=== PATIENT | female | born 1940 | race Caucasian/White ===

== ENCOUNTER → 2016-06-24 | Outpatient (CLI) | payer OTHER ==
[~2016-06-24] MED LIST: ANAS1TAB19 PO; ASPI81CH2 PO; CALC600T9 PO; GLUCTAB7 PO; LEVO75TA PO
--- NOTE | 2016-06-24 17:07 | MAMMOGRAPHY REPORT ---
BILATERAL DIGITAL DIAGNOSTIC MAMMOGRAM TOMOSYNTHESIS WITH CAD: 06/24/2016 CLINICAL HISTORY: History of right breast cancer status post lumpectomy April 2015 as well as rad iation therapy which finished July 2015. TECHNIQUE: Breast tomosynthesis in addition to standard 2D mammography was performed. Current study was also evaluated with a Computer Aided Detection (CAD) system. Bilateral CC and MLO 2-D and tsering synthesis images and spot magnification right cc and ML views were obtained. COMPARISON: Comparison is made to exams dated: 02/26/2016 mammogram, 06/09/2012 mammogram, 04/18/2015 breast MRI, 03/18/2015 mammogram, 03/18/2015 ultrasound, and 06/09/2012 ultrasound. BREAST COMPOSITION: The tissue of both breasts is heterogeneously dense, which may obscure small ma sses. FINDINGS: There are stable expected postsurgical changes in the right central breast from prior lum pectomy, including architectural distortion and surgical clips at the lumpectomy bed. A linear scar marker denotes a scar in the right breast. Spot magnification views of the lumpectomy bed demonstr ate a few scattered calcifications in the anterior breast, without suspicious cluster of calcificati ons or suspicious mass seen. The remainder of both breasts are stable compared to prior exams, with out suspicious masses, calcifications, or areas of architectural distortion noted. IMPRESSION: ACR-BI-RADS CATEGORY 3: PROBABLY BENIGN Expected post surgical changes in the right breast from prior lumpectomy, with no mammographic evide nce of malignancy in either breast. Recommend follow-up diagnostic mammograms of the right breast i n 6 months to reevaluate the right breast postsurgical changes. The patient has been verbally notified of the results. Approximately 10% of breast cancers are not detected with mammography. A negative mammographic repor t should not delay biopsy if a clinically suggestive mass is present. Emily Joshi M.D. /:06/24/2016 15:15:55 Bottle Packer: April Paz, [facility] letter sent: Personal History 3 BI-RADS Code: ACR-BI-RADS Category 3: Probably Benign
== END | disposition home or self-care (01) ==
LOC: C.MAMM 12:40
PROVIDERS: ATTEND Nurse Practitioner Family
DX: C50.911 Malignant neoplasm of unspecified site of right female breast (principal); Z17.0 Estrogen receptor positive status [ER+]; Z98.890 Other specified postprocedural states; Z92.3 Personal history of irradiation

== ENCOUNTER → 2016-06-24 | Outpatient (CLI) | payer OTHER ==
[2016-06-24 15:13] LABS: BASO % 0.2 %; BASO ABS # 0.02 K/uL (0-0.2); COMPLETE YES; EOS % 0.6 %; HEMATOCRIT 39.8 % (37-47); IG% 0.3 %; LYMPH % 17.1 %; LYMPH ABS # 1.62 K/uL (1.2-3.4); MEAN CELL VOLUME 91.5 fL (80-100); MEAN CORPUSCULAR HEMOGLOBIN 31.5 pg (25-34); MEAN CORPUSCULAR HGB CONC 34.4 g/dl (32-36); MEAN PLATELET VOLUME 9.3 fL (7.4-10.4); MONO % 6.3 %; NEUT % 75.5 %; PLATELET COUNT 305 K/uL (130-400); RED BLOOD COUNT 4.35 M/uL (4.2-5.4); WHITE BLOOD COUNT 9.47 K/uL (4.8-10.8)
[2016-06-24 15:25] LABS: ALT/SGPT 26 U/L (12-78); AST/SGOT 13 U/L (15-37); BLOOD UREA NITROGEN 27 mg/dl (7-18); BUN/CREATININE RATIO 28.2 (10-20); CALCIUM 9.1 mg/dl (8.5-10.1); CARBON DIOXIDE 29 mmol/L (21-32); CHLORIDE 107 mmol/L (98-107); CREATININE 0.94 mg/dl (0.60-1.20); GLUCOSE 93 mg/dl (70-99); POTASSIUM 3.8 mmol/L (3.5-5.1); SODIUM 144 mmol/L (136-145)
[2016-06-24 15:28] LABS: ALB/GLOB RATIO 1.2 (0.9-2); ALKALINE PHOSPHATASE 71 U/L (45-117)
== END | disposition home or self-care (01) ==
LOC: C.LAB1850 13:38
PROVIDERS: ATTEND Nurse Practitioner Family
DX: C50.911 Malignant neoplasm of unspecified site of right female breast (principal)

== ENCOUNTER → 2016-10-15 | Outpatient (CLI) | payer OTHER ==
[2016-10-15 14:19] LABS: BASO % 0.2 %; BASO ABS # 0.02 K/uL (0-0.2); COMPLETE YES; EOS % 0.6 %; HEMATOCRIT 39.8 % (37-47); IG% 0.3 %; LYMPH % 17.5 %; LYMPH ABS # 1.56 K/uL (1.2-3.4); MEAN CORPUSCULAR HEMOGLOBIN 31.1 pg (25-34); MEAN CORPUSCULAR HGB CONC 33.4 g/dl (32-36); MEAN PLATELET VOLUME 9.1 fL (7.4-10.4); NEUT % 74.4 %; PLATELET COUNT 307 K/uL (130-400); RED BLOOD COUNT 4.28 M/uL (4.2-5.4); WHITE BLOOD COUNT 8.89 K/uL (4.8-10.8)
[2016-10-15 14:47] LABS: ALT/SGPT 22 U/L (12-78); AST/SGOT 14 U/L (15-37); BLOOD UREA NITROGEN 31 mg/dl (7-18); BUN/CREATININE RATIO 27.9 (10-20); CALCIUM 8.8 mg/dl (8.5-10.1); CARBON DIOXIDE 28 mmol/L (21-32); CHLORIDE 109 mmol/L (98-107); GLUCOSE 121 mg/dl (70-99); POTASSIUM 3.8 mmol/L (3.5-5.1); SODIUM 142 mmol/L (136-145)
[2016-10-15 14:50] LABS: ALB/GLOB RATIO 1.2 (0.9-2); ALKALINE PHOSPHATASE 76 U/L (45-117)
== END | disposition home or self-care (01) ==
LOC: C.LAB1850 13:45
PROVIDERS: ATTEND Nurse Practitioner Family
DX: C50.911 Malignant neoplasm of unspecified site of right female breast (principal)

== ENCOUNTER → 2017-02-17 | Outpatient (CLI) | payer OTHER ==
--- NOTE | 2017-02-17 15:16 | MAMMOGRAPHY REPORT ---
UNILATERAL RIGHT DIGITAL DIAGNOSTIC MAMMOGRAM TOMOSYNTHESIS WITH CAD AND TARGETED RIGHT ULTRASOUND: CLINICAL HISTORY: 76-year-old woman with a personal history of right breast cancer diagnosed in 2014, presents for a close follow-up in the right breast after treatment. TECHNIQUE: Right breast tomosynthesis in addition to standard 2D mammography was performed. Spot mag nification right CC and ML views were also obtained. Current study was also evaluated with a Compute r Aided Detection (CAD) system. COMPARISON: Comparison is made to exams dated: 06/24/2016 mammogram - [facility], mammogram, 03/28/2015 ultrasound, 03/18/2015 mammogram, 03/18/2015 ultrasound, and 06/09/2012 mammogram. BREAST COMPOSITION: The tissue of the right breast is heterogeneously dense, which may obscure small masses. FINDINGS: There is expected architectural distortion and surgical clips in the 6:00 anterior right b reast, at the site of prior lumpectomy. Best seen on the spot magnification ML view is a 6 mm cluste r of punctate and amorphous microcalcifications in the superior middle one third of the breast, thoug ht to project laterally based on the CC views. When comparing back to prior available mammograms the se microcalcifications were not definitely seen in the past and are indeterminate. Definitive charac terization with a stereotactic guided biopsy is recommended. There is minimal nodularity in the late ral right breast seen on the tomosynthesis images. No other obvious new mass, new grouped or cluster ed microcalcifications or unexpected focal area of architectural distortion is identified. Targeted ultrasound was performed in the lateral right breast to assess for the nodularity seen on th e tomosynthesis images. There is a rounded circumscribed hypoechoic cyst versus fat necrosis in the 8:00 right breast, 1 cm from the nipple, measuring 2.5 x 2.6 x 2.8 mm. No other suspicious solid or cystic mass is identified in the lateral right breast on ultrasound. IMPRESSION: ACR BI-RADS CATEGORY 4: SUSPICIOUS, TARGETED ULTRASOUND ACR BI-RADS CATEGORY 4: SUSPICIO US 1. Right breast stereotactic guided biopsy is recommended for a 6 mm cluster of faint punctate and a morphous microcalcifications in the upper outer quadrant of the right breast. 2. There is slight nodularity on the tomosynthesis images in the right lateral breast on the CC proj ection, but no suspicious sonographic correlate was seen throughout the lateral breast on ultrasound. This most likely represented normal overlapping fibroglandular tissue. 3. Given the personal history of right breast cancer and dense breasts, would also recommend continu ed surveillance with breast MRI. These results and recommendations were discussed with the patient at the time of the exam. The patie nt could not tolerate a stereotactic guided biopsy at this time due to breast pain after the mammogra m images and we will schedule this at a later date. She also tentatively scheduled her breast MRI pr ior to leaving our department. Approximately 10% of breast cancers are not detected with mammography. A negative mammographic report should not delay biopsy if a clinically suggestive mass is present. Rianna Hammonds M.D. ay/:02/17/2017 11:51:37 Electrician: Carmel VARGAS)(Sean), [facility] letter sent: Abnormal 4/5 BI-RADS Code: ACR BI-RADS Category 4: Suspicious Ultrasound BI-RADS: ACR BI-RADS Category 4: Suspici ous
== END | disposition home or self-care (01) ==
LOC: C.MAMM 09:01
PROVIDERS: ATTEND Nurse Practitioner Family
DX: R92.0 Mammographic microcalcification found on diagnostic imaging of breast (principal); Z85.3 Personal history of malignant neoplasm of breast

== ENCOUNTER → 2017-02-17 | Outpatient (CLI) | payer OTHER ==
[2017-02-17 12:18] LABS: BASO % 0.6 %; BASO ABS # 0.04 K/uL (0-0.2); COMPLETE YES; EOS % 2.9 %; HEMATOCRIT 38.9 % (37-47); IG% 0.3 %; LYMPH % 25.2 %; LYMPH ABS # 1.64 K/uL (1.2-3.4); MEAN CELL VOLUME 94.6 fL (80-100); MEAN CORPUSCULAR HEMOGLOBIN 30.4 pg (25-34); MEAN CORPUSCULAR HGB CONC 32.1 g/dl (32-36); MEAN PLATELET VOLUME 9.2 fL (7.4-10.4); MONO % 8.5 %; NEUT % 62.5 %; PLATELET COUNT 304 K/uL (130-400); RED BLOOD COUNT 4.11 M/uL (4.2-5.4)
[2017-02-17 12:39] LABS: ALT/SGPT 21 U/L (12-78); AST/SGOT 18 U/L (15-37); BLOOD UREA NITROGEN 21 mg/dl (7-18); BUN/CREATININE RATIO 28.3 (10-20); CALCIUM 8.8 mg/dl (8.5-10.1); CARBON DIOXIDE 27 mmol/L (21-32); CHLORIDE 109 mmol/L (98-107); CREATININE 0.75 mg/dl (0.60-1.20); GLUCOSE 71 mg/dl (70-99); POTASSIUM 3.8 mmol/L (3.5-5.1); SODIUM 141 mmol/L (136-145)
[2017-02-17 12:41] LABS: ALB/GLOB RATIO 1.2 (0.9-2); ALKALINE PHOSPHATASE 82 U/L (45-117)
== END | disposition home or self-care (01) ==
LOC: C.LAB1850 10:45
PROVIDERS: ATTEND Nurse Practitioner Family
DX: C50.911 Malignant neoplasm of unspecified site of right female breast (principal)

== ENCOUNTER → 2017-03-09 | Outpatient (CLI) | payer OTHER ==
--- NOTE | 2017-03-09 13:43 | Discharge Instructions ---
Discharge Instructions Procedure Procedure Date: Mar 09, 2017. Reason for visit: Right Calcifications. Discharge Discharge Date: Mar 09, 2017. Discharge Diagnosis: post right breast stereotactic guided biopsy Instructions Activity Recommendations: Additional Limitations (see below) Return to School/Work: no limitations Recommended Home Diet: No Limitations Provider Instructions: ACTIVITY RECOMMENDATIONS: * No lifting, pushing, pulling or exercising the affected side for three days. RETURN TO SCHOOL/WORK: * You may return to work/school after the procedure, but do not perform any strenuous activities for 24 to 48 hours. MEDICATIONS: * May take Advil or Aleve for pain. DIET: * Resume previous diet. SPECIAL CARE INSTRUCTIONS: * Keep biopsy site dry for 24 hours. May shower after 24 hours, but do not soak (bathe) incision. * May remove Tegaderm (plastic patch) tomorrow AFTER showering. * Leave the steri-strips on for one week. Allow the steri-strips to fall off by themselves. If not off after one week, you may remove them. You may place a Bandaid crosswise over the strips, if desired. * Apply ice 10 minutes on and 10 minutes off as needed. * Wear a bra at bedtime to sleep more comfortably for 2-3 days. * Your referring physician should have the results after approximately 5 to 7 business days. * Call for unusual bleeding, fever, drainage, etc or if you have any questions call [phone] during normal business hours or after hours call Dr Hammonds, . FOLLOW UP VISIT: Follow-up with Referring Physician as scheduled. Allergies Coded Allergies: Acetaminophen (Unverified Allergy, Unknown, SWELLING, 06/14/15) Uncoded Allergies: -CILLIN ABX (Allergy, Unknown, SWELLING/HIVES, 06/14/15) Janet Castellanos Recommendations: Call your doctor if: * Temperature above 101 degrees * Pain not relieved by pain medicine ordered * There is increased drainage or redness from any incision * You have any unanswered questions or concerns. Your Doctors Instructions noted above were prepared by provider Rianna Hammonds. Patient Signature Section: Patient Instructions Signature Page Kasia Beverly Patient (or Guardian) Signature/Date: I have read and understand the instructions given to me by my caregivers. Caregiver/RN/Doctor Signature/Date: The above-named patient and/or guardian has received patient instructions on this date. + Original Patient Signature Page (only) stays with chart. Please make copy for patient.
--- NOTE | 2017-03-09 14:23 | MAMMOGRAPHY REPORT ---
STEREOTACTIC GUIDED BIOPSY RIGHT BREAST: 03/09/2017 CLINICAL HISTORY: Cluster of faint amorphous microcalcifications in the upper outer middle one third of the right breast. Patient presented for stereotactic guided biopsy. She has a history of right b reast cancer diagnosed in 2014, status post breast conservation treatment. COMPARISON: Comparison is made to exams dated: 03/09/2017 mammogram, 02/17/2017 ultrasound, 02/17/2017 mammogram, 06/24/2016 mammogram - [facility], 02/26/2016 mammogram, and 04/18/2015 b reast MRI. PATIENT CONSENT: After explaining the risks, benefits and alternatives of the procedure to the patien t, informed consent was obtained both verbally and in writing. Specific risks include: Bleeding, inf ection, puncture of adjacent structure, pain, nontarget biopsy, sampling error, metal allergy and med ication reaction. PROCEDURE DESCRIPTION: A time-out was performed and the right breast was confirmed as the site of bio psy. The patient was placed prone on the stereotactic biopsy table and the breast was placed in later almedial compression. A doors prefitter image was obtained that demonstrated the clustered microcalcifications in question. They are amenable to sterotactic biopsy. Then +15 and -15 stereo pair images were ob tained. The calcifications were targeted utilizing the coordinates obtained by the computer. The ski n was prepped with Betadine. 1% Lidocaine with and without epinipherine was administered as local ane sthesia. A small skin incision was made. Through the incision, the needle was inserted to the depth determined by the computer. 12 samples were obtained using a [employer] 9-gauge vacuum-assisted biop sy device. The specimen radiograph demonstrated several medical billing representative microcalcifications, therefore , a metallic marker was placed at the biopsy site. There was no immediate complication. Hemostasis wa s achieved after several minutes of manual compression. The samples were sent to pathology in two ap propriately labeled containers, "with calcifications" and "without calcifications". All of the sample s were obtained from the same single biopsy site. Postprocedure CC and ML views of the right breast were obtained. There is a new dumbbell-shaped met allic biopsy marker in the upper outer middle one third of the breast, at the site of the biopsied mi crocalcifications. There is a 9 mm density at the site of the biopsy marker clip on the LM view sugg esting minimal hematoma at the biopsy site cavity. COMPARISON: Comparison is made to exams dated: 03/09/2017 mammogram, 02/17/2017 ultrasound, 02/17/2017 mammogram, 06/24/2016 mammogram - [facility], 02/26/2016 mammogram, and 04/18/2015 b reast MRI. A stereotactic guided biopsy was performed for the abnormality located in the right breast at 10 o'cl ock middle depth. The skin was prepped in the usual manner. A biopsy needle was placed adjacent to the abnormality under computer guidance and confirmatory stereotactic mammography images were obtaine d to document needle placement. Once the needle was documented to be in the correct location, a spec imen was obtained using an automated biopsy gun. The specimen was sent to the laboratory for patholo gical analysis. IMPRESSION: STEREOTACTIC GUIDED BIOPSY 1. Status post stereotactic guided biopsy of a faint cluster of amorphous microcalcifications in the right upper outer quadrant, with biopsy marker placed at the site. 2. Pending benign pathology results, would recommend continued surveillance with breast MRI. The patient will receive notification of the biopsy results from her referring physician. Rianna Hammonds M.D. ay/:03/09/2017 14:14:10 Automotive Exhaust Emissions Technician: April Paz, [facility]
--- NOTE | 2017-03-09 14:23 | MAMMOGRAPHY REPORT ---
UNILATERAL RIGHT DIGITAL DIAGNOSTIC MAMMOGRAM: 03/09/2017 CLINICAL HISTORY: Status post right breast stereotactic guided biopsy of a faint cluster of amorphous microcalcifications in the upper outer quadrant. Patient has a personal history of right breast can cer diagnosed in 2014, status post breast conservation therapy. Please refer to the report from right breast stereotactic guided biopsy performed at the same time fo r full detail. IMPRESSION: POST PROCEDURE IMAGING FOR MARKER PLACEMENT Please refer to the report from right breast stereotactic guided biopsy performed at the same time fo r full detail. Approximately 10% of breast cancers are not detected with mammography. A negative mammographic report should not delay biopsy if a clinically suggestive mass is present. Rianna Hammonds M.D. ay/:03/09/2017 14:02:20 Lithopress Operator: April Paz, [facility] BI-RADS Code: Post Procedure Imaging For Marker Placement
== END | disposition home or self-care (01) ==
LOC: C.MAMM 12:39
PROVIDERS: ATTEND Nurse Practitioner Family
DX: R92.0 Mammographic microcalcification found on diagnostic imaging of breast (principal); N60.21 Fibroadenosis of right breast

== ENCOUNTER → 2017-07-01 | Outpatient (CLI) | payer OTHER ==
[2017-07-01 12:14] LABS: BASO % 0.6 %; BASO ABS # 0.04 K/uL (0-0.2); EOS % 1.8 %; EOS ABS # 0.12 K/uL (0-0.5); HEMATOCRIT 40.5 % (37-47); HEMOGLOBIN 13.3 g/dL (12.0-16.0); IG# 0.02 K/uL (0.00-0.02); LYMPH % 22.3 %; MEAN CELL VOLUME 93.3 fL (80-100); MEAN CORPUSCULAR HEMOGLOBIN 30.6 pg (25-34); MEAN CORPUSCULAR HGB CONC 32.8 g/dl (32-36); MEAN PLATELET VOLUME 9.4 fL (7.4-10.4); MONO % 7.1 %; MONO ABS # 0.48 K/uL (0.11-0.59); NEUT % 67.9 %; NEUT ABS # 4.58 K/uL (1.4-6.5); PLATELET COUNT 276 K/uL (130-400); RED CELL DISTRIBUTION WIDTH CV 13.4 % (11.5-14.5); RED CELL DISTRIBUTION WIDTH SD 46.1 fL (36.4-46.3); WHITE BLOOD COUNT 6.74 K/uL (4.8-10.8)
[2017-07-01 12:37] LABS: ALBUMIN 3.7 gm/dl (3.4-5.0); ALT/SGPT 20 U/L (12-78); BLOOD UREA NITROGEN 16 mg/dl (7-18); CALCIUM 8.7 mg/dl (8.5-10.1); CARBON DIOXIDE 27 mmol/L (21-32); CREATININE 1.04 mg/dl (0.60-1.20); GLUCOSE 106 mg/dl (70-99); SODIUM 140 mmol/L (136-145)
[2017-07-01 12:40] LABS: ALKALINE PHOSPHATASE 69 U/L (45-117); AST/SGOT 13 U/L (15-37); TOTAL PROTEIN 6.8 gm/dl (6.4-8.2)
== END | disposition home or self-care (01) ==
LOC: C.LAB1850 10:37
PROVIDERS: ATTEND Nurse Practitioner Family
DX: C50.911 Malignant neoplasm of unspecified site of right female breast (principal)

== ENCOUNTER → 2017-08-17 | Outpatient (CLI) | payer OTHER ==
[2017-08-17 09:32] LABS: BASO % 0.3 %; BASO ABS # 0.03 K/uL (0-0.2); EOS % 1.6 %; EOS ABS # 0.15 K/uL (0-0.5); HEMATOCRIT 39.1 % (37-47); HEMOGLOBIN 13.3 g/dL (12.0-16.0); IG# 0.03 K/uL (0.00-0.02); LYMPH % 16.9 %; LYMPH ABS # 1.61 K/uL (1.2-3.4); MEAN CELL VOLUME 93.5 fL (80-100); MEAN CORPUSCULAR HEMOGLOBIN 31.8 pg (25-34); MEAN PLATELET VOLUME 8.9 fL (7.4-10.4); MONO % 7.7 %; MONO ABS # 0.73 K/uL (0.11-0.59); NEUT % 73.2 %; NEUT ABS # 6.97 K/uL (1.4-6.5); PLATELET COUNT 315 K/uL (130-400); RED CELL DISTRIBUTION WIDTH CV 13.6 % (11.5-14.5); RED CELL DISTRIBUTION WIDTH SD 46.3 fL (36.4-46.3); WHITE BLOOD COUNT 9.52 K/uL (4.8-10.8)
[2017-08-17 09:53] LABS: HEMOGLOBIN A1C 5.7 % (4.5-5.6)
[2017-08-17 10:10] LABS: ALBUMIN 3.6 gm/dl (3.4-5.0); ALT/SGPT 25 U/L (12-78); AST/SGOT 16 U/L (15-37); BLOOD UREA NITROGEN 16 mg/dl (7-18); CALCIUM 8.7 mg/dl (8.5-10.1); CARBON DIOXIDE 26 mmol/L (21-32); CREATININE 0.84 mg/dl (0.60-1.20); GLUCOSE 86 mg/dl (70-99); POTASSIUM 4.1 mmol/L (3.5-5.1); SODIUM 140 mmol/L (136-145)
[2017-08-17 10:20] LABS: ALKALINE PHOSPHATASE 67 U/L (45-117); TOTAL PROTEIN 6.8 gm/dl (6.4-8.2)
== END | disposition home or self-care (01) ==
LOC: C.LAB1850 08:46
PROVIDERS: ATTEND Nurse Practitioner Primary Care
DX: E03.9 Hypothyroidism, unspecified (principal); R53.83 Other fatigue; R73.01 Impaired fasting glucose

== ENCOUNTER → 2017-12-20 | Outpatient (CLI) | payer OTHER ==
[~2017-12-20] MED LIST changes: -ANAS1TAB19 PO; +ANAS1TAB59 PO
[2017-12-20 13:18] LABS: BASO % 0.3 %; BASO ABS # 0.02 K/uL (0-0.2); EOS % 1.4 %; HEMATOCRIT 40.6 % (37-47); HEMOGLOBIN 13.5 g/dL (12.0-16.0); IG# 0.03 K/uL (0.00-0.02); LYMPH % 24.6 %; LYMPH ABS # 1.71 K/uL (1.2-3.4); MEAN CELL VOLUME 92.5 fL (80-100); MEAN CORPUSCULAR HEMOGLOBIN 30.8 pg (25-34); MEAN CORPUSCULAR HGB CONC 33.3 g/dl (32-36); MEAN PLATELET VOLUME 9.7 fL (7.4-10.4); MONO % 7.2 %; NEUT % 66.1 %; PLATELET COUNT 292 K/uL (130-400); RED CELL DISTRIBUTION WIDTH CV 13.2 % (11.5-14.5); RED CELL DISTRIBUTION WIDTH SD 44.2 fL (36.4-46.3); WHITE BLOOD COUNT 6.96 K/uL (4.8-10.8)
[2017-12-20 13:45] LABS: ALBUMIN 3.7 gm/dl (3.4-5.0); ALKALINE PHOSPHATASE 77 U/L (45-117); ALT/SGPT 23 U/L (12-78); AST/SGOT 13 U/L (15-37); BLOOD UREA NITROGEN 21 mg/dl (7-18); CALCIUM 8.4 mg/dl (8.5-10.1); CARBON DIOXIDE 25 mmol/L (21-32); CREATININE 0.92 mg/dl (0.60-1.20); GLUCOSE 95 mg/dl (70-99); SODIUM 139 mmol/L (136-145); TOTAL PROTEIN 6.8 gm/dl (6.4-8.2)
== END | disposition home or self-care (01) ==
LOC: C.LAB1850 11:45
PROVIDERS: ATTEND Nurse Practitioner Family
DX: C50.911 Malignant neoplasm of unspecified site of right female breast (principal)

== ENCOUNTER 2022-10-25 18:11 | Inpatient (IN) ==
[2022-10-25] MEDS ORDERED: ONDANSETRON INJ 2 MG/ML 2 ML VIAL IV STA (18:19)
[2022-10-25] MEDS ORDERED: SODIUM CHLORIDE 0.9% 1000ML 1,000 ML IV SCH (18:30)
--- NOTE | 2022-10-25 18:30 | Emergency Department Note ---
History of Present Illness General Chief complaint: Vomiting Stated complaint: CHILLS, VOMITING Time Seen by Provider: 10/25/22 18:19 History of Present Illness Provider complaint: Nausea and chills Onset (ago): month(s) 2 82-year-old female presents emergency department for nausea and weakness. She reports chills she reports is regular for last 2 months. Patient states she is being treated for gastric cancer at [facility] and is supposed to have a CT scan of her abdomen done on Wednesday. Home Medications Medication Instructions Recorded Confirmed Type glucosamine sulf dipot 1 cap PO DAILY 02/17/20 10/25/22 History chlr,msm,chond 550 mg-C 30 mg-rick 1 mg capsule (Glucosamine Chondroitin) levothyroxine 75 mcg tablet 75 mcg PO QAM 02/17/20 10/25/22 History (Synthroid) cholecalciferol (vitamin D3) 25 0 mcg PO DAILY 10/25/22 10/25/22 History mcg (1,000 unit) tablet (Vitamin D3) coffee extract 100 mg-phosphatidyl 0 cap PO DAILY 10/25/22 10/25/22 History serine 100 mg capsule (Neuriva Original) Allergies Allergy/AdvReac Type Severity Reaction Status Date / Time -CILLIN ABX Allergy Unknown SWELLING/HI Uncoded 02/17/20 14:27 VES Past Med/Surg History Medical History Basal cell carcinoma Breast cancer (03/28/15) "DIAGNOSIS: Right breast, invasive ductal carcinoma, grade 2, ER/NM positive, Her2 negative, [id number], stage IA 1. Lumpectomy/SLN - 05/09/15 (Dr. Markham) 2. Status post completion of radiation therapy 08/07/2015 received 5130 cGy utilizing hypo-fractionation" On 06/21/15 11:19 Rios Tamayo wrote "DIAGNOSIS: Right breast, invasive ductal carcinoma, grade 2, ER/NM positive, Her2 negative, [id number], stage IA 1. Lumpectomy/SLN - 05/09/15 (Dr. Markham)" Hypothyroidism (acquired) Squamous cell carcinoma Surgical History H/O lumpectomy History of cataract surgery History of hysteroscopy History of thyroid surgery Family History Mother Breast cancer Father Melanoma Denies family history of Ovarian cancer Colorectal cancer Social History Smoking Status: Never smoker Tobacco Type: Cigarettes Do You Dip or Chew Tobacco: No; Preferred Language: Burmese Feels Safe at Home: Yes Physical Exam Vital Signs Vital Signs - 24 hr 10/25/22 18:16 10/25/22 18:47 10/25/22 19:12 Temperature 36.5 C Temperature Source Oral Pulse Rate 109 H 100 H Pulse Rate [Finger] Pulse Rhythm [Finger] Respiratory Rate 20 Respiratory Effort / Characteristics Non-Labored Respiratory Depth Normal Blood Pressure 135/62 Blood Pressure [Left Arm] Blood Pressure Mean 86 Blood Pressure Mean [Left Arm] Pulse Oximetry 98 92 Oxygen Delivery Method Room Air Room Air Sepsis Recent Fever Within 48 Hours No Sepsis New/Unexplained Change in Mental Status N/A Sepsis Action Taken by Nursing No Action Required 10/25/22 20:26 10/25/22 20:48 10/25/22 22:00 Temperature 37.6 C Temperature Source Oral Pulse Rate Pulse Rate [Finger] 103 H 85 Pulse Rhythm [Finger] Respiratory Rate 18 18 Respiratory Effort / Characteristics Respiratory Depth Blood Pressure Blood Pressure [Left Arm] 115/65 115/62 Blood Pressure Mean Blood Pressure Mean [Left Arm] 81 79 Pulse Oximetry 95 97 Oxygen Delivery Method Room Air Room Air Sepsis Recent Fever Within 48 Hours Sepsis New/Unexplained Change in Mental Status Sepsis Action Taken by Nursing 10/25/22 23:55 Temperature Temperature Source Pulse Rate Pulse Rate [Finger] 109 H Pulse Rhythm [Finger] Regular Respiratory Rate 18 Respiratory Effort / Characteristics Non-Labored Spontaneous Respiratory Depth Normal Blood Pressure Blood Pressure [Left Arm] 116/64 Blood Pressure Mean Blood Pressure Mean [Left Arm] 81 Pulse Oximetry 98 Oxygen Delivery Method Room Air Sepsis Recent Fever Within 48 Hours Sepsis New/Unexplained Change in Mental Status Sepsis Action Taken by Nursing Physical Exam GENERAL: oriented to person, place, and time. appears well-developed and well-nourished. HENT: Exam performed. - Head: Normocephalic and atraumatic. EYES: Conjunctivae and EOM are normal. Right eye exhibits no discharge. Left eye exhibits no discharge. No scleral icterus. NECK: Normal range of motion. Neck supple. No JVD present. CV: Tachycardic rate, regular rhythm, normal heart sounds and intact distal pulses. There is no peripheral edema. Palpable radial pulses bue. PULM/CHEST: Effort normal and breath sounds normal. No respiratory distress. No stridor. no wheezes. no rales. ABD: The abdomen is soft. There is no tenderness. NEURO: Motor and sensation grossly intact. SKIN: Skin is warm and dry. He is not diaphoretic. PSYCH: normal mood and affect. Behavior is normal. Judgment and thought content normal. Course Course 1818: The patient was evaluated in room B11. A complete history and physical exam was performed Administered Medications Ciprofloxacin (Cipro / D5w) 400 mg in 200 mls @ 100 mls/hr IV NOW STA; Protocol Stop: 10/26/22 00:41 Last Admin: 10/25/22 22:51 Dose: 100 mls/hr Documented By: ANNA Discontinued Medications Sodium Chloride (Nss 1000ml) 1,000 mls @ 999 mls/hr IV .Q1H1M AMPARO Stop: 10/25/22 19:30 Last Infusion: 10/25/22 20:13 Dose: 0 mls/hr Documented By: Admin: 10/25/22 18:52 Dose: 999 mls/hr Documented By: BING Ioversol (Optiray 320 100ml) 88 ml IV ONCE ONE Stop: 10/25/22 19:54 Last Admin: 10/25/22 19:53 Dose: 88 ml Documented By: BELLE Ondansetron HCl (Ondansetron Inj 2 Mg/Ml 2 Ml Vial) 4 mg IV NOW STA Stop: 10/25/22 18:20 Last Admin: 10/25/22 18:52 Dose: 4 mg Documented By: BING Medical Decision Making Laboratory Data Attestation: I reviewed the patient's lab results. 10/25/22 19:10 10/25/22 18:52 Lab Results 10/25/22 10/25/22 10/25/22 Range/Units 18:47 18:52 18:57 WBC (4.8-10.8) K/ul RBC (4.20-5.40) M/uL Hgb (12.0-16.0) g/dl POC Hgb 10.5 L (12.0-16.0) g/dl Hct (37.0-47.0) % POC Hct 31 L (37-47) % MCV (80.0-100.0) fL MCH (25.0-34.0) pg MCHC (32.0-36.0) g/dL RDW Std Deviation (36.4-46.3) fL RDW Coeff of Nat (11.5-14.5) % Plt Count (130-400) K/uL MPV (9.4-12.4) fL Immature Gran % (Auto) % Neut % (Auto) % Lymph % (Auto) % [place] % (Auto) % Eos % (Auto) % Baso % (Auto) % Neut # (Auto) (1.40-6.50) K/uL Lymph # (Auto) (1.2-3.4) K/uL [place] # (Auto) (0.11-0.59) K/uL Eos # (Auto) (0-0.50) K/uL Baso # (Auto) (0-0.2) K/uL Immature Gran # (Auto) (0.01-0.20) K/uL Polychromasia PT (9.0-12.0) Seconds INR (0.9-1.1) APTT (21.0-31.0) Seconds PTT Ratio POC Sodium 133 L (135-144) mmol/L Sodium 132 L (136-145) mmol/L POC Potassium 4.4 (3.3-5.0) mmol/L Potassium 4.4 (3.5-5.1) mmol/L POC Chloride 101 (101-112) mmol/L Chloride 101 (98-107) mmol/L Carbon Dioxide 22 (21-32) mmol/L POC Total CO2 20 L (24-31) mmol/L Anion Gap 9 (3-11) POC Anion Gap 18.0 (16-25) mmol/L POC BUN 23 H (7-18) mg/dl BUN 25 H (6-23) mg/dl Creatinine 1.36 H (0.6-1.2) mg/dl POC Creatinine 1.5 H (0.6-1.3) mg/dl Est Cr Clr Drug Dosing 29.9 ml/min Est GFR ( Amer) 42.5 ml/min Est GFR (Non-Af Amer) 36.7 ml/min BUN/Creatinine Ratio 18.4 (10-20) Glucose 140 H (70-99(Fasting)) mg/dl POC Glucose (other) 140 H (70-99) mg/dl Lactate (0.4-2.0) mmol/L Calcium 8.7 (8.6-10.3) mg/dl POC Ioniz Calcium Marlys 1.11 L (1.12-1.32) mmol/l Magnesium 1.8 (1.7-2.4) mg/dl Total Bilirubin 0.9 (0.2-1.0) mg/dl Direct Bilirubin 0.2 (0-0.2) mg/dl AST 14 (13-39) U/L ALT 8 (7-52) U/L Alkaline Phosphatase 71 (34-104) U/L Troponin I High Sens 15.1 H (0-14) pg/ml Total Protein 6.5 (6.0-8.3) gm/dl Albumin 3.7 (3.4-5.0) gm/dl Lipase 11 (11-82) U/L Procalcitonin (0-0.5) ng/ml Urine Color Urine Appearance (Clear) Urine pH (4.5-7.5) Ur Specific [place] (1.000-1.030) Urine Protein (Negative) Urine Glucose (UA) (Negative) Urine Ketones (Negative) Urine Blood (Negative) Urine Nitrite (Negative) Urine Bilirubin (Negative) Urine Urobilinogen (Negative) Ur Leukocyte Esterase (Negative) Urine WBC (Auto) (0-5) /hpf Urine RBC (Auto) (0-4) /hpf U Hyaline Cast (Auto) (0-5) /lpf U Epithel Cells (Auto) (0-5) /lpf Urine Bacteria (Auto) (Negative) Adenovirus (PCR) Not Detected (NotDetected) B. pertussis DNA (PCR) Not Detected (NotDetected) B.parapertussis DNA PCR Not Detected (NotDetected) C. pneumoniae DNA (PCR) Not Detected (NotDetected) Coronavirus OC43 (PCR) Not Detected (NotDetected) Coronavirus HKU1 (PCR) Not Detected (NotDetected) Coronavirus 229E (PCR) Not Detected (NotDetected) SARS-CoV-2 (PCR) Not Detected (NotDetected) Coronavirus NL63 (PCR) Not Detected (NotDetected) Human Metapneumovir PCR Not Detected (NotDetected) Influenza Type A (PCR) Not Detected (NotDetected) Influenza Type B (PCR) Not Detected (NotDetected) M. pneumoniae (PCR) Not Detected (NotDetected) Parainfluenza 1 (PCR) Not Detected (NotDetected) Parainfluenza 2 (PCR) Not Detected (NotDetected) Parainfluenza 3 (PCR) Not Detected (NotDetected) Parainfluenza 4 (PCR) Not Detected (NotDetected) RSV (PCR) Not Detected (NotDetected) Entero/Rhino (PCR) Not Detected (NotDetected) 10/25/22 10/25/22 10/25/22 Range/Units 19:10 19:10 19:10 WBC 30.52 H* (4.8-10.8) K/ul RBC 3.16 L (4.20-5.40) M/uL Hgb 9.7 L (12.0-16.0) g/dl POC Hgb (12.0-16.0) g/dl Hct 29.4 L (37.0-47.0) % POC Hct (37-47) % MCV 93.0 (80.0-100.0) fL MCH 30.7 (25.0-34.0) pg MCHC 33.0 (32.0-36.0) g/dL RDW Std Deviation 54.3 H (36.4-46.3) fL RDW Coeff of Nat 15.9 H (11.5-14.5) % Plt Count 335 (130-400) K/uL MPV 9.1 L (9.4-12.4) fL Immature Gran % (Auto) 1.0 % Neut % (Auto) 91.9 % Lymph % (Auto) 2.2 % [place] % (Auto) 4.6 % Eos % (Auto) 0.0 % Baso % (Auto) 0.3 % Neut # (Auto) 28.06 H (1.40-6.50) K/uL Lymph # (Auto) 0.66 L (1.2-3.4) K/uL [place] # (Auto) 1.41 H (0.11-0.59) K/uL Eos # (Auto) 0.00 (0-0.50) K/uL Baso # (Auto) 0.09 (0-0.2) K/uL Immature Gran # (Auto) 0.30 H (0.01-0.20) K/uL Polychromasia 1+ PT 11.6 (9.0-12.0) Seconds INR 1.1 (0.9-1.1) APTT 25.6 (21.0-31.0) Seconds PTT Ratio 0.9 POC Sodium (135-144) mmol/L Sodium (136-145) mmol/L POC Potassium (3.3-5.0) mmol/L Potassium (3.5-5.1) mmol/L POC Chloride (101-112) mmol/L Chloride (98-107) mmol/L Carbon Dioxide (21-32) mmol/L POC Total CO2 (24-31) mmol/L Anion Gap (3-11) POC Anion Gap (16-25) mmol/L POC BUN (7-18) mg/dl BUN (6-23) mg/dl Creatinine (0.6-1.2) mg/dl POC Creatinine (0.6-1.3) mg/dl Est Cr Clr Drug Dosing ml/min Est GFR ( Amer) ml/min Est GFR (Non-Af Amer) ml/min BUN/Creatinine Ratio (10-20) Glucose (70-99(Fasting)) mg/dl POC Glucose (other) (70-99) mg/dl Lactate 1.1 (0.4-2.0) mmol/L Calcium (8.6-10.3) mg/dl POC Ioniz Calcium Marlys (1.12-1.32) mmol/l Magnesium (1.7-2.4) mg/dl Total Bilirubin (0.2-1.0) mg/dl Direct Bilirubin (0-0.2) mg/dl AST (13-39) U/L ALT (7-52) U/L Alkaline Phosphatase (34-104) U/L Troponin I High Sens (0-14) pg/ml Total Protein (6.0-8.3) gm/dl Albumin (3.4-5.0) gm/dl Lipase (11-82) U/L Procalcitonin (0-0.5) ng/ml Urine Color Urine Appearance (Clear) Urine pH (4.5-7.5) Ur Specific [place] (1.000-1.030) Urine Protein (Negative) Urine Glucose (UA) (Negative) Urine Ketones (Negative) Urine Blood (Negative) Urine Nitrite (Negative) Urine Bilirubin (Negative) Urine Urobilinogen (Negative) Ur Leukocyte Esterase (Negative) Urine WBC (Auto) (0-5) /hpf Urine RBC (Auto) (0-4) /hpf U Hyaline Cast (Auto) (0-5) /lpf U Epithel Cells (Auto) (0-5) /lpf Urine Bacteria (Auto) (Negative) Adenovirus (PCR) (NotDetected) B. pertussis DNA (PCR) (NotDetected) B.parapertussis DNA PCR (NotDetected) C. pneumoniae DNA (PCR) (NotDetected) Coronavirus OC43 (PCR) (NotDetected) Coronavirus HKU1 (PCR) (NotDetected) Coronavirus 229E (PCR) (NotDetected) SARS-CoV-2 (PCR) (NotDetected) Coronavirus NL63 (PCR) (NotDetected) Human Metapneumovir PCR (NotDetected) Influenza Type A (PCR) (NotDetected) Influenza Type B (PCR) (NotDetected) M. pneumoniae (PCR) (NotDetected) Parainfluenza 1 (PCR) (NotDetected) Parainfluenza 2 (PCR) (NotDetected) Parainfluenza 3 (PCR) (NotDetected) Parainfluenza 4 (PCR) (NotDetected) RSV (PCR) (NotDetected) Entero/Rhino (PCR) (NotDetected) 10/25/22 10/25/22 10/25/22 Range/Units 19:10 21:45 22:32 WBC (4.8-10.8) K/ul RBC (4.20-5.40) M/uL Hgb (12.0-16.0) g/dl POC Hgb (12.0-16.0) g/dl Hct (37.0-47.0) % POC Hct (37-47) % MCV (80.0-100.0) fL MCH (25.0-34.0) pg MCHC (32.0-36.0) g/dL RDW Std Deviation (36.4-46.3) fL RDW Coeff of Nat (11.5-14.5) % Plt Count (130-400) K/uL MPV (9.4-12.4) fL Immature Gran % (Auto) % Neut % (Auto) % Lymph % (Auto) % [place] % (Auto) % Eos % (Auto) % Baso % (Auto) % Neut # (Auto) (1.40-6.50) K/uL Lymph # (Auto) (1.2-3.4) K/uL [place] # (Auto) (0.11-0.59) K/uL Eos # (Auto) (0-0.50) K/uL Baso # (Auto) (0-0.2) K/uL Immature Gran # (Auto) (0.01-0.20) K/uL Polychromasia PT (9.0-12.0) Seconds INR (0.9-1.1) APTT (21.0-31.0) Seconds PTT Ratio POC Sodium (135-144) mmol/L Sodium (136-145) mmol/L POC Potassium (3.3-5.0) mmol/L Potassium (3.5-5.1) mmol/L POC Chloride (101-112) mmol/L Chloride (98-107) mmol/L Carbon Dioxide (21-32) mmol/L POC Total CO2 (24-31) mmol/L Anion Gap (3-11) POC Anion Gap (16-25) mmol/L POC BUN (7-18) mg/dl BUN (6-23) mg/dl Creatinine (0.6-1.2) mg/dl POC Creatinine (0.6-1.3) mg/dl Est Cr Clr Drug Dosing ml/min Est GFR ( Amer) ml/min Est GFR (Non-Af Amer) ml/min BUN/Creatinine Ratio (10-20) Glucose (70-99(Fasting)) mg/dl POC Glucose (other) (70-99) mg/dl Lactate (0.4-2.0) mmol/L Calcium (8.6-10.3) mg/dl POC Ioniz Calcium Marlys (1.12-1.32) mmol/l Magnesium (1.7-2.4) mg/dl Total Bilirubin (0.2-1.0) mg/dl Direct Bilirubin (0-0.2) mg/dl AST (13-39) U/L ALT (7-52) U/L Alkaline Phosphatase (34-104) U/L Troponin I High Sens 19.0 H (0-14) pg/ml Total Protein (6.0-8.3) gm/dl Albumin (3.4-5.0) gm/dl Lipase (11-82) U/L Procalcitonin 2.14 H (0-0.5) ng/ml Urine Color Yellow Urine Appearance Clear (Clear) Urine pH 5.5 (4.5-7.5) Ur Specific [place] > 1.045 H (1.000-1.030) Urine Protein 1+ H (Negative) Urine Glucose (UA) Negative (Negative) Urine Ketones Negative (Negative) Urine Blood 1+ H (Negative) Urine Nitrite Negative (Negative) Urine Bilirubin Negative (Negative) Urine Urobilinogen Negative (Negative) Ur Leukocyte Esterase Negative (Negative) Urine WBC (Auto) >30 H (0-5) /hpf Urine RBC (Auto) 0-4 (0-4) /hpf U Hyaline Cast (Auto) 1-5 (0-5) /lpf U Epithel Cells (Auto) 5-10 H (0-5) /lpf Urine Bacteria (Auto) Negative (Negative) Adenovirus (PCR) (NotDetected) B. pertussis DNA (PCR) (NotDetected) B.parapertussis DNA PCR (NotDetected) C. pneumoniae DNA (PCR) (NotDetected) Coronavirus OC43 (PCR) (NotDetected) Coronavirus HKU1 (PCR) (NotDetected) Coronavirus 229E (PCR) (NotDetected) SARS-CoV-2 (PCR) (NotDetected) Coronavirus NL63 (PCR) (NotDetected) Human Metapneumovir PCR (NotDetected) Influenza Type A (PCR) (NotDetected) Influenza Type B (PCR) (NotDetected) M. pneumoniae (PCR) (NotDetected) Parainfluenza 1 (PCR) (NotDetected) Parainfluenza 2 (PCR) (NotDetected) Parainfluenza 3 (PCR) (NotDetected) Parainfluenza 4 (PCR) (NotDetected) RSV (PCR) (NotDetected) Entero/Rhino (PCR) (NotDetected) Imaging Data Attestation: I personally reviewed and interpreted this imaging study as follows: My Impression: Chest x-ray negative. Airway clear. No pneumothorax. No consolidation. No cardiomegaly or cephalization.. No free air under the diaphragm. No fractures of the skeletal structures. Radiologist's Impression: Abdomen/Pelvis CT 10/25/22 18:19 Exam(s): CT ABDOMEN + PELVIS With Contrast IV Amt: 88ML OPTIRAY 320 EXAM: CT Abdomen and Pelvis With Intravenous Contrast CLINICAL HISTORY: Reason for exam: fever vomitting stomach ca. TECHNIQUE: Axial computed tomography images of the abdomen and pelvis with intravenous contrast. CTDI is is advised 13.11 mGy and DLP is 593.64 mGy- cm. Automated exposure control was utilized for the study. A dose lowering technique was utilized adhering to the principles of ALARA. CONTRAST: Patient received 88ML OPTIRAY 320 of IV contrast COMPARISON: 10/08/22 FINDINGS: Lung bases: Unremarkable. No mass. No consolidation. ABDOMEN: Liver: There is 1.4 cm left hepatic cyst. Gallbladder and bile ducts: Unremarkable. No calcified stones. No ductal dilation. Pancreas: Unremarkable. No mass. No ductal dilation. Spleen: Unremarkable. No splenomegaly. Adrenals: Unremarkable. No mass. Kidneys and ureters: There is mild left-sided hydroureteronephrosis. Left nephrographic density is lower than the right nephrographic density. There is left-sided percutaneous nephrostomy. Stomach and bowel: Sigmoid colonic diverticulosis. No obstruction. No mucosal thickening. PELVIS: Appendix: No findings to suggest acute appendicitis. Bladder: Unremarkable. No mass. Reproductive: Unremarkable as visualized. ABDOMEN and PELVIS: Intraperitoneal space: Unremarkable. No free air. No significant fluid collection. Bones/joints: No acute fracture. No dislocation. Soft tissues: There is 5.8 cm diameter heterogenous density mass lesion seen in the right rectus abdominis muscle. 3.1 cm soft tissue mass seen in the left rectus abdominis muscle. Vasculature: Ascending aorta is ectatic, measuring up to 3.8 cm in diameter. No abdominal aortic aneurysm. Lymph nodes: 5.9 cm short axis diameter right retrocrural lymph node is seen. There is 1.5 x 2.5 cm left obturator lymphadenopathy 1.2 cm short axis diameter right inguinal lymphadenopathy is seen. IMPRESSION: 1. Soft tissue mass lesion in the right and left rectus abdominis muscles, suggestive of metastatic disease, similar to prior study 2. Mild left hydroureteronephrosis, more prominent than prior study 3. Left obturator and right inguinal lymphadenopathy Electronically signed by: Luis F Nguyen MD 10/25/22 22:04 PM Chest X-Ray 10/25/22 18:20 XR chest 1V portable CLINICAL HISTORY: Sepsis TECHNIQUE: Single frontal radiograph of the chest was obtained. Comparison: Comparison is made to chest radiograph 02/17/2020 FINDINGS: No lines and tubes are seen. The cardiomediastinal silhouette is normal. The lungs are clear. No evidence of pleural effusion or pneumothorax. IMPRESSION: No acute abnormalities and in particular no radiographic evidence of pneumonia. ACT 112: Negative or not required by law. Electronically signed by: Asif Lin M.D. 10/25/2022 8:06 PM [facility] Narrative Cardiac monitoring: An order was placed for continuous cardiac monitoring. The monitor shows a rate of 110 with sinus tachycardia rhythm interpreted by md Labs show leukocytosis of 30. Lactic acid within normal limits. Urinalysis does appear possibly infected. Patient be treated with Cipro. CT of the abdomen pelvis shows a soft tissue mass suggestive of metastatic disease which is similar to prior study and some mild left hydroureteronephrosis which is more prominent than the prior study. Patient's initial troponin was 15.1. Delta troponin was 19 greater than 20% increase. Patient denies any chest pain. [facility] notified. Impression & Plan Acute UTI, Elevated troponin, Weakness Discharge Plan Visit Data Chief Complaint: Vomiting Stated Complaint: CHILLS, VOMITING ED Provider: Job Fonseca Discharge Problem: Acute UTI, Elevated troponin, Weakness Patient Disposition: Admitted As Inpatient Forms Stand Alone Forms: [facility], Virtual Emergency Department, [facility] Visit Information Prescriptions Prescriptions: No Action levothyroxine [Synthroid] 75 mcg tablet 75 mcg PO QAM Glucosamine Chondroitin 550-30-1 mg Capsule 1 cap PO DAILY cholecalciferol (vitamin D3) [Vitamin D3] 25 mcg (1,000 unit) Tablet 0 mcg PO DAILY Rx Instructions: per pt she hasn't been using the med because she's been feeling bad. Neuriva Original 100-100 mg Capsule 0 cap PO DAILY Rx Instructions: Pt didn't give dose Referrals Referrals: Kamila Enamorado PA-C [Outside Practitioners] -
[2022-10-25 19:11] LABS: iSTAT Creatinine 1.5 mg/dl (0.6-1.3); iSTAT Hemoglobin 10.5 g/dl (12.0-16.0); iSTAT Ionized Calcium 1.11 mmol/l (1.12-1.32); iSTAT Potassium 4.4 mmol/L (3.3-5.0)
[2022-10-25 19:29] LABS: Albumin Level 3.7 gm/dl (3.4-5.0); BUN Creatinine Ratio 18.4 (10-20); Bilirubin Direct 0.2 mg/dl (0-0.2); Bilirubin,Total 0.9 mg/dl (0.2-1.0); Calcium 8.7 mg/dl (8.6-10.3); Creatinine Clr Calc Pharmacy 29.9 ml/min; Est GFR (African American) 42.5 ml/min; Est GFR (Non-African American) 36.7 ml/min; Magnesium 1.8 mg/dl (1.7-2.4); Potassium 4.4 mmol/L (3.5-5.1); Total Protein 6.5 gm/dl (6.0-8.3)
[2022-10-25 19:35] LABS: Troponin I High Sensitivity 15.1 pg/ml (0-14)
[2022-10-25 19:45] LABS: Adenovirus PCR Not Detected (NotDetected); Bordetella parapertussis PCR Not Detected (NotDetected); Bordetella pertussis PCR Not Detected (NotDetected); Chlamydia pneumoniae PCR Not Detected (NotDetected); Coronavirus 229E PCR Not Detected (NotDetected); Coronavirus CoV-2 (COVID19)PCR Not Detected (NotDetected); Coronavirus HKU1 PCR Not Detected (NotDetected); Coronavirus NL63 PCR Not Detected (NotDetected); Coronavirus OC43PCR Not Detected (NotDetected); Human Metapneumovirus PCR Not Detected (NotDetected); Influenza A PCR Not Detected (NotDetected); Influenza B PCR Not Detected (NotDetected); Mycoplasma pneumoniae PCR Not Detected (NotDetected); Parainfluenza Virus 1 PCR Not Detected (NotDetected); Parainfluenza Virus 2 PCR Not Detected (NotDetected); Parainfluenza Virus 3 PCR Not Detected (NotDetected); Parainfluenza Virus 4 PCR Not Detected (NotDetected); Respiratory Syncytial VirusPCR Not Detected (NotDetected); Rhinovirus/Enterovirus PCR Not Detected (NotDetected)
[2022-10-25 19:48] LABS: Hematocrit (blood only) 29.4 % (37.0-47.0); Hemoglobin 9.7 g/dl (12.0-16.0); Mean Corpuscular Hemoglobin 30.7 pg (25.0-34.0); Mean Platelet Volume 9.1 fL (9.4-12.4); Platelet Count 335 K/uL (130-400); RDW Coefficient of Variation 15.9 % (11.5-14.5); RDW Standard Deviation 54.3 fL (36.4-46.3); Red Blood Count 3.16 M/uL (4.20-5.40); White Blood Count 30.52 K/ul (4.8-10.8)
[2022-10-25 19:50] LABS: Basophils # (auto) 0.09 K/uL (0-0.2); Basophils % (auto) 0.3 %; Lymphocytes # (auto) 0.66 K/uL (1.2-3.4); Lymphocytes % (auto) 2.2 %; Monocytes # (auto) 1.41 K/uL (0.11-0.59); Monocytes % (auto) 4.6 %; Neutrophils # (auto) 28.06 K/uL (1.40-6.50); Neutrophils % (auto) 91.9 %; Polychromasia 1+
[2022-10-25] MEDS ORDERED: OPTIRAY 320 100ml IV ONE (19:53)
[2022-10-25 20:02] LABS: INR 1.1 (0.9-1.1); Partial Thromboplastin Ratio 0.9; Partial Thromboplastin Time 25.6 Seconds (21.0-31.0); Prothrombin Time 11.6 Seconds (9.0-12.0)
--- NOTE | 2022-10-25 20:08 | XRay Report ---
XR chest 1V portable CLINICAL HISTORY: Sepsis TECHNIQUE: Single frontal radiograph of the chest was obtained. Comparison: Comparison is made to chest radiograph 02/17/2020 FINDINGS: No lines and tubes are seen. The cardiomediastinal silhouette is normal. The lungs are clear. No evid ence of pleural effusion or pneumothorax. IMPRESSION: No acute abnormalities and in particular no radiographic evidence of pneumonia. ACT 112: Negative or not required by law. Electronically signed by: Asif Lin M.D. 10/25/2022 8:06 PM
--- NOTE | 2022-10-25 22:05 | CT Scan Report ---
Exam(s): CT ABDOMEN + PELVIS With Contrast IV Amt: 88ML OPTIRAY 320 EXAM: CT Abdomen and Pelvis With Intravenous Contrast CLINICAL HISTORY: Reason for exam: fever vomitting stomach ca. TECHNIQUE: Axial computed tomography images of the abdomen and pelvis with intravenous contrast. CTDI is is advised 13.11 mGy and DLP is 593.64 mGy- cm. Automated exposure control was utilized for the study. A dose lowering technique was utilized adhering to the principles of ALARA. CONTRAST: Patient received 88ML OPTIRAY 320 of IV contrast COMPARISON: 10/08/22 FINDINGS: Lung bases: Unremarkable. No mass. No consolidation. ABDOMEN: Liver: There is 1.4 cm left hepatic cyst. Gallbladder and bile ducts: Unremarkable. No calcified stones. No ductal dilation. Pancreas: Unremarkable. No mass. No ductal dilation. Spleen: Unremarkable. No splenomegaly. Adrenals: Unremarkable. No mass. Kidneys and ureters: There is mild left-sided hydroureteronephrosis. Left nephrographic density is lower than the right nephrographic density. There is left-sided percutaneous nephrostomy. Stomach and bowel: Sigmoid colonic diverticulosis. No obstruction. No mucosal thickening. PELVIS: Appendix: No findings to suggest acute appendicitis. Bladder: Unremarkable. No mass. Reproductive: Unremarkable as visualized. ABDOMEN and PELVIS: Intraperitoneal space: Unremarkable. No free air. No significant fluid collection. Bones/joints: No acute fracture. No dislocation. Soft tissues: There is 5.8 cm diameter heterogenous density mass lesion seen in the right rectus abdominis muscle. 3.1 cm soft tissue mass seen in the left rectus abdominis muscle. Vasculature: Ascending aorta is ectatic, measuring up to 3.8 cm in diameter. No abdominal aortic aneurysm. Lymph nodes: 5.9 cm short axis diameter right retrocrural lymph node is seen. There is 1.5 x 2.5 cm left obturator lymphadenopathy 1.2 cm short axis diameter right inguinal lymphadenopathy is seen. IMPRESSION: 1. Soft tissue mass lesion in the right and left rectus abdominis muscles, suggestive of metastatic disease, similar to prior study 2. Mild left hydroureteronephrosis, more prominent than prior study 3. Left obturator and right inguinal lymphadenopathy Electronically signed by: Luis F Nguyen MD 10/25/22 22:04 PM
[2022-10-25 22:14] LABS: Appearance Urine Clear (Clear); Bacteria Urine Automated Negative (Negative); Bilirubin Urine Negative (Negative); Blood Urine 1+ (Negative); Color Urine Yellow; Glucose Urine UA Negative (Negative); Ketones Urine Negative (Negative); Leukocyte Esterase Urine Negative (Negative); Nitrite Urine Negative (Negative); Protein Urine 1+ (Negative); RBC Urine Automated 0-4 /hpf (0-4); Specific Gravity Urine > 1.045 (1.000-1.030); Urobilinogen Urine Negative (Negative); WBC Urine Automated >30 /hpf (0-5); pH Urine 5.5 (4.5-7.5)
[2022-10-25] MEDS ORDERED: CIPROFLOXACIN / D5W 400 MG/200 ML BAG IV STA (22:42)
--- NOTE | 2022-10-25 23:21 | History & Physical Report ---
Date of Service October 25, 2022 Assessment & Plan (1) Urinary tract infection: Plan: -UA largely clear aside from WBCs + epithelial cells but given clinical history + exam findings + leukocytosis + procalcitonin elevation, concern for UTI -CTAP does not demonstrate acute pyelonephritis or nephro/ureterolithiasis though L hydroureteronephrosis noted -Ciprofloxacin given in ED, will continue for now though low threshold to broaden coverage if clinical decline -BCx, UCx pending -Urology consulted -Trend CBC, will repeat procalcitonin (2) Leukocytosis: Plan: -WBC 30, significantly increased from 14 on 10/08 -Likely indicates acute infection given recent UTIs, presence of nephrostomy tube + procalcitonin elevation -As above, ciprofloxacin continued -Trend CBC (3) Acute kidney injury: Plan: -Cr 1.36 on admission, elevated from baseline of 1.0 -Suspect pre-renal from poor oral intake -IVF repletion ongoing -Trend BMP (4) Elevated troponin: Plan: -Minimally elevated troponin 15 in pt without chest pain or EKG ischemic changes -Will defer TTE or further cardiac workup for now -Trend to peak (5) Clostridium difficile colitis: Plan: -Recently completed treatment Flagyl x7 days for C difficile colitis -Will retest stool PCR if further incidents of diarrhea occur in hospital (6) Hyponatremia: Plan: -Mild hyponatremia to Na 132 on admission -Likely 2/2 poor oral intake, dehydration -IVF repletion ongoing -Trend BMP (7) Anemia: Plan: -Hgb 9.7, stable from 9.6 on 10/08 -Normocytic, likely of chronic disease -Does appear at baseline per [facility] records -No suspected bleeding at present -Trend CBC (8) Metastatic disease: Plan: -Extensive cancer history w/ active gastric cancer being managed at [facility], follows with [facility] oncology -Deferring oncology consult on admission (9) Hypothyroidism: Plan: -Continue levothyroxine Plan FENGI: Regular Code status: Full DVT ppx: Lovenox 40 mg daily Isolation: None Dispo: Medical/surgical with telemetry History of Present Illness Chief Complaint: Malaise Primary Care Provider: Maribell Jacek Pt is 82 yo F with PMH breast cancer s/p lumpectomy + radiation, SCC, BCC, stage III endometrial cancer s/p hysterectomy + b/l salpingo-oophorectomy + pelvic node removal + partial omentectomy, gastric cancer being treated at [facility], metastatic disease, L renal mass w/ nephrostomy tube placed about 5 weeks prior at [facility], hypothyroidism, multiple UTIs presenting with multiple symptoms. Pt reports 10 weeks' worth of symptoms- general malaise, fatigue, subjective fever/chills, nausea, generalized abdominal pain, poor oral intake, night sweats. Pt recently hospitalized at [facility] 09/22 - 09/27 for UTI w/ hydronephrosis + JOCELIN, underwent L percutaneous nephrostomy + treated with cefepime -> Bactrim. She was seen in [facility] ED about 2 weeks prior and diagnosed with colitis per CT, discharged home without intervention- she was completing cefdinir course for UTI at the time. She went to PCP at [facility] on 10/15 due to persistent symptoms along with watery foul-smelling diarrhea. She did begin treatment for C difficile colitis with Flagyl x7 days at that visit and completed on 10/22. She came to ED due to concern by family and also since her usual nephrostomy drainage was not adequate today- very little UOP. Pt arrived to ER hemodynamically stable, mild tachycardia to 100s. Initial evaluation significant for WBC 30.5, Hgb 9.7, Na 132, BUN 25, Cr 1.36, troponin 15, procalcitonin 2.1, UA with 30+ WBCs, 5-10 epithelial cells. CXR clear. EKG unremarkable. CTAP w/ soft tissue mass lesion in R + L rectus abdominis muscles suggesting metastasis, mild L hydroureteronephrosis, L obturator + R inguinal lymphadenopathy. ER interventions include Zofran, NSS bolus 1L, ciprofloxacin IV. At present, pt reports no change in symptoms. Still reporting significant malaise. No active chest pain. Allergies Allergy/AdvReac Type Severity Reaction Status Date / Time Penicillins Allergy Unknown Swelling/Hi Verified 10/26/22 00:39 ves Home Medications Medication Instructions Recorded Confirmed Type glucosamine sulf dipot 1 cap PO DAILY 02/17/20 10/25/22 History chlr,msm,chond 550 mg-C 30 mg-rick 1 mg capsule (Glucosamine Chondroitin) levothyroxine 75 mcg tablet 75 mcg PO QAM 02/17/20 10/25/22 History (Synthroid) cholecalciferol (vitamin D3) 25 0 mcg PO DAILY 10/25/22 10/25/22 History mcg (1,000 unit) tablet (Vitamin D3) coffee extract 100 mg-phosphatidyl 0 cap PO DAILY 10/25/22 10/25/22 History serine 100 mg capsule (Neuriva Original) ciprofloxacin HCl 500 mg tablet 500 mg PO BID #20 tabs 10/29/22 Rx (Cipro) ondansetron HCl 4 mg tablet 4 mg PO TID PRN nausea and 10/29/22 Rx vomiting #20 tabs oxycodone 5 mg tablet 5 - 10 mg PO TID PRN pain #20 tabs 10/29/22 Rx Past Med/Surg History Medical History (Updated 10/28/22 @ 07:08 by Victor Manuel Barriga MD) Basal cell carcinoma Breast cancer (03/28/15) On 06/21/15 11:19 Rios Tamayo wrote "DIAGNOSIS: Right breast, invasive ductal carcinoma, grade 2, ER/VA positive, Her2 negative, [id number], stage IA 1. Lumpectomy/SLN - 05/09/15 (Dr. Markham)" Hypothyroidism (acquired) Squamous cell carcinoma Surgical History H/O lumpectomy History of cataract surgery History of hysteroscopy History of thyroid surgery Family History Mother Breast cancer Father Melanoma Denies family history of Ovarian cancer Colorectal cancer Social History Smoking Status: Never smoker Tobacco Type: Cigarettes Do You Dip or Chew Tobacco: No; Hx Alcohol Use: No Hx Substance Use: No Preferred Language: Guyanese Communication Ability: Effective Social Insurance Specialist Required: No Beliefs That Will Affect Care: None Current Living Situation: Spouse and Family Current Living Situation Comment: lives w/ & 2 stepsons Feels Safe at Home: Yes Assistive Devices: Cane and Walker Review of Systems Review of Systems: Per HPI/Subjective Physical Exam Physical Exam: General: frail-appearing, no acute distress, tired HEENT: PERRL, EOMI, conjunctivae clear without injection, anicteric sclerae, dry mucous membranes, clear oropharynx without exudate or erythema Neck: supple, trachea midline, no thyromegaly, no JVD, no cervical lymphadenopathy CV: RRR, normal S1 and S2, no murmurs Resp: CTAB, no increased work of breathing, no crackles or wheezes Abd: Soft, mildly tender to L flank + CVA, nondistended, no guarding or rebound, no hepatosplenomegaly. L nephrostomy tube in place. MSK: Normal bulk of all four extremities Neuro: AOx3, no focal motor or sensory deficits Skin: no rashes or lesions, warm and dry Ext: no LE peripheral edema or erythema, capillary refill <2s in all four extremities, 2+ LE peripheral pulses b/l Results & Data Results & Data Vital Signs (Past 12 Hours) Vital Signs Temp Pulse Pulse Resp BP BP Pulse Ox 10/25/22 22:00 85 18 115/62 97 10/25/22 20:48 37.6 C 10/25/22 20:26 103 H 18 115/65 95 10/25/22 19:12 92 10/25/22 18:47 100 H 10/25/22 18:16 36.5 C 109 H 20 135/62 98 O2 Del Method 10/25/22 22:00 Room Air 10/25/22 20:48 10/25/22 20:26 Room Air 10/25/22 19:12 Room Air 10/25/22 18:47 10/25/22 18:16 Room Air Code Status & VTE Plan VTE Prophylaxis Plan VTE Prophylaxis will be ordered: Yes Supervising Physician Co-Signing Physician Notes Attending addendum: I have physically seen this patient, have supervised the medical residents activities, and agree with the H&P unless as otherwise noted. Assessment and Plan: Urinary tract infection/left hydroureteronephrosis Follow urine culture sensitivity Follow blood culture and sensitivity Continue Cipro IV begun in the ED Consult urology Acute kidney injury- Creatinine 1.36 on admission with baseline 0.99 IV fluids, and recheck laboratories in a.m. Follow urine culture and sensitivity and continue treat with Cipro Elevated troponin- Troponin 15.1 on admission Follow serially Likely supply demand mismatch issue Remaining orders and notations as noted Resident Activity Tracking Resident Involvement: Resident Care Provided Care Provided: Adult [facility]
[2022-10-26] MEDS ORDERED: HYDROmorphone INJ 0.5 MG/0.5 ML SYR IV PRN (00:29)
[2022-10-26] MEDS: ACETAMINOPHEN 1,000 MG/100 ML VIAL IV PRN ×2 (01:30→19:28)
[2022-10-26] MEDS: LACTATED RINGER'S 1,000 ML IV SCH ×2 (01:30→16:04)
[2022-10-26] MEDS: LEVOTHYROXINE SODIUM 75 MCG TABLET PO SCH (06:50)
[2022-10-26 07:32] LABS: BUN Creatinine Ratio 16.4 (10-20); Calcium 8.7 mg/dl (8.6-10.3); Creatinine Clr Calc Pharmacy 20.7 ml/min; Est GFR (African American) 32.2 ml/min; Est GFR (Non-African American) 27.8 ml/min; Potassium 4.6 mmol/L (3.5-5.1)
[2022-10-26 07:33] LABS: Hematocrit (blood only) 32.2 % (37.0-47.0); Hemoglobin 10.5 g/dl (12.0-16.0); Mean Corpuscular Hemoglobin 30.5 pg (25.0-34.0); Mean Corpuscular Hgb Conc 32.6 g/dL (32.0-36.0); Mean Corpuscular Volume 93.6 fL (80.0-100.0); Platelet Count 307 K/uL (130-400); RDW Coefficient of Variation 16.4 % (11.5-14.5); RDW Standard Deviation 56.5 fL (36.4-46.3); Red Blood Count 3.44 M/uL (4.20-5.40); White Blood Count 33.24 K/ul (4.8-10.8)
--- NOTE | 2022-10-26 08:17 | Hospitalist Progress Note ---
Date of Service October 26, 2022 Assessment & Plan (1) Urinary tract infection: Plan: Percutaneous nephrostomy tube with decreased output increased debris + leukocytosis + procalcitonin elevation, concern for UTI POA -CTAP does not demonstrate acute pyelonephritis or nephro/ureterolithiasis though L hydroureteronephrosis noted to be worsened than previous -Ciprofloxacin given in ED, will continue -BCx, UCx pending -Urology consulted recommend flushing percutaneous nephrostomy tube Marked leukocytosis persists immature granulocytes also noted (2) Metastatic disease: Plan: -Extensive cancer history w/ active gastric cancer being [place] [facility], reportedly was supposed to establish care at [facility] but cannot make appointment on the of patient is open to having her malignancy managed here has previously been treated by Dr. Rios Tamayo for her breast cancer We will of oncology consult and radiation oncology consult on 08/27 other malignancies are breast, basal cell, and recently eval for endometrial mass - (3) Leukocytosis: Plan: -WBC 30, significantly increased from 14 on 10/08 -with recent C Diff infection however patient is very constipated therefore will not retest stool at this time and actually give laxatives (4) Acute kidney injury: Plan: -Cr 1.36 on admission, elevated from baseline of 1.0 -Suspect pre-renal from poor oral intake -IVF repletion ongoing -Trend BMP (5) Elevated troponin: Plan: -Minimally elevated troponin 15 in pt without chest pain or EKG ischemic changes -Will defer TTE or further cardiac workup for now Likely this is demand ischemia there is no persistent trend after serial troponins x3 (6) Clostridium difficile colitis: Plan: -Recently completed treatment Flagyl x7 days for C difficile colitis Leukocytosis is worrisome however patient is noted any bowel movements has been constipated for 4 days or so (7) Hyponatremia: Plan: Acute [id number]-Cepd hyponatremia to Na 132 on admission - (8) Anemia: Plan: Chronic seems stable-Hgb 9.7, stable from 9.6 on 10/08 -Normocytic, likely of chronic disease -Does appear at baseline per [facility] records (9) Hypothyroidism: Plan: -Continue levothyroxine Plan Code status: Full DVT ppx: Lovenox 40 mg daily Admission and Anticipated Discharge Date Admission Date: October 25, 2022 Subjective Patient states she feels better now I did conference in the call with her daughter who is a nurse practitioner Patient was initially involved in care at [facility] where she had a percutaneous nephrostomy tube reportedly there is an intra-abdominal mass that is obstructing her left ureter her nephrostomy tube was not draining appropriately but urology evaluated and found that the stopcock was slightly turned in with this was not preventing appropriate drainage. Patient is currently admitted for weakness and possible UTI on presentation Physical Exam Physical Exam: Patient is pleasant she denies any pain she is a nephrostomy tube exiting her left back for this as a dark and yellow liquid with a lot of debris within it Her abdomen in general is nontender I was trying to palpate abdominal masses that may be able to palpate the one on the right Card exam is regular lungs are clear Results & Data Results & Data Vital Signs (Past 12 Hours) Vital Signs Temp Pulse Pulse Resp BP Pulse Ox O2 Del Method 10/26/22 04:43 97.5 F L 80 20 97/56 L 98 Room Air 10/26/22 00:00 Room Air 10/26/22 00:00 99.3 F 108 H 20 119/67 93 Room Air 10/26/22 00:20 99 H 10/25/22 23:55 109 H 18 116/64 98 Room Air 10/25/22 22:00 85 18 115/62 97 Room Air 10/25/22 20:48 99.6 F 10/25/22 20:26 103 H 18 115/65 95 Room Air Laboratory Results reviewed cbc, chemistry PG Care Time/CCT Total # of Minutes Spent Total Time Spent with Patient: Total time spent is greater than 50% in coordination of care (as documented) at patient's floor/unit and/or counseling patient: Coding Level of Care Code 24071 SUB INP/OBS CARE 2/35MIN Diagnoses Urinary tract infection N39.0 Metastatic disease C79.9 Leukocytosis D72.829 Acute kidney injury N17.9 Elevated troponin R77.8 Clostridium difficile colitis A04.72 Hyponatremia E87.1 Anemia D64.9 Hypothyroidism E03.9
--- NOTE | 2022-10-26 08:57 | Urology Consultation ---
Date of Consultation October 26, 2022 Assessment & Plan (1) Acute UTI: (2) Metastatic disease: Plan Metastatic breast CA with subsequent left ureteral obstruction and nephrostomy tube; urinary tract infection She has had her care delivered through [facility] and I see no reason to change any care Her CT was personally reviewed and discussed as were all of her labs and history Her left nephrostomy tube is appropriately positioned and she has no significant right-sided hydronephrosis She reports that her nephrostomy has not been draining for several days and on evaluation the stopcock was closed. After opening this she had immediate drainage of purulent urine and anticipate this will gradually lead to improvement Nephrostomy can be flushed with 5 cc of normal saline if output slows, however, I hope that with appropriate antibiotics and hydration we should see gradual clearing of her grossly purulent urine Please call if any further issues during this hospitalization History of Present Illness Attending Physician: William Faith MD History of Present Illness Extremely pleasant 82-year-old female who has unfortunately developed metastatic breast cancer She was recently hospitalized in [place] with evidence of left ureteral obstruction and urinary tract infection This necessitated left nephrostomy tube placement She has had a persistent leukocytosis She is still receiving care through the [facility] system She presented to the emergency room here because of failure for her left nephrostomy tube to drain and worsening condition overall Her chronic elevated white count was further elevated to 30,000 Creatinine has a baseline of under 1 but was 1.3 on arrival and 1.7 today She feels poorly overall but has been afebrile and hemodynamically stable Allergies Allergy/AdvReac Type Severity Reaction Status Date / Time Penicillins Allergy Unknown Swelling/Hi Verified 10/26/22 00:39 ves Home Medications Medication Instructions Recorded Confirmed Type glucosamine sulf dipot 1 cap PO DAILY 02/17/20 10/25/22 History chlr,msm,chond 550 mg-C 30 mg-rick 1 mg capsule (Glucosamine Chondroitin) levothyroxine 75 mcg tablet 75 mcg PO QAM 02/17/20 10/25/22 History (Synthroid) cholecalciferol (vitamin D3) 25 0 mcg PO DAILY 10/25/22 10/25/22 History mcg (1,000 unit) tablet (Vitamin D3) coffee extract 100 mg-phosphatidyl 0 cap PO DAILY 10/25/22 10/25/22 History serine 100 mg capsule (Neuriva Original) Patient History Medical History Basal cell carcinoma Breast cancer (03/28/15) "DIAGNOSIS: Right breast, invasive ductal carcinoma, grade 2, ER/SC positive, Her2 negative, [id number], stage IA 1. Lumpectomy/SLN - 05/09/15 (Dr. Markham) 2. Status post completion of radiation therapy 08/07/2015 received 5130 cGy utilizing hypo-fractionation" On 06/21/15 11:19 Rios Tamayo wrote "DIAGNOSIS: Right breast, invasive ductal carcinoma, grade 2, ER/SC positive, Her2 negative, [id number], stage IA 1. Lumpectomy/SLN - 05/09/15 (Dr. Markham)" Hypothyroidism (acquired) Squamous cell carcinoma Surgical History H/O lumpectomy History of cataract surgery History of hysteroscopy History of thyroid surgery Family History Mother Breast cancer Father Melanoma Denies family history of Ovarian cancer Colorectal cancer Social History Smoking Status: Never smoker Tobacco Type: Cigarettes Do You Dip or Chew Tobacco: No; Hx Alcohol Use: No Hx Substance Use: No Preferred Language: Afghan Communication Ability: Effective Construction Carpenter Required: No Beliefs That Will Affect Care: None Current Living Situation: Spouse and Family Current Living Situation Comment: lives w/ & 2 stepsons Other Information That Helps Us Care for You: No Feels Safe at Home: Yes Safety Concerns: Feels Safe At This Time Assistive Devices: Cane and Glasses Review of Systems Constitutional: + fatigue and + malaise; no fever and no chills Eyes: no worsening vision Ear, Nose, Mouth, Throat: no facial pain and no pain with swallowing Respiratory: no cough and no dyspnea Cardiovascular: no chest pain and no palpitations Gastrointestinal: + abdominal pain; no nausea and no vomiting Genitourinary: no dysuria, no difficulty urinating, no urinary frequency and no hematuria UTI Musculoskeletal: no back pain Integumentary: no rash and no urticaria Neurologic: no gait abnormality and no unsteadiness Psychiatric: no behavioral changes and no depression Endocrine: no fatigue Physical Exam Physical Exam: Abdomen soft, no right CVA tenderness, no suprapubic tenderness, left nephrostomy tube site appears appropriate Stopcock on the left nephrostomy tube was closed and there is no drainage into the bag After un locking the stopcock she had an immediate drainage of purulent urine into the nephrostomy bag Constitutional: well developed and well nourished Respiratory: no respiratory distress Cardiovascular: Extremities: no pedal edema Gastrointestinal (Abdomen): Inspection/Auscultation: abdomen normal to inspection Results & Data Vital Signs (Past 12 Hours) Vital Signs Temp Pulse Pulse Resp BP Pulse Ox O2 Del Method 10/26/22 08:14 37.1 C 97 H 16 94/55 L 92 Room Air 10/26/22 04:43 36.4 C L 80 20 97/56 L 98 Room Air 10/26/22 00:00 Room Air 10/26/22 00:00 37.4 C 108 H 20 119/67 93 Room Air 10/26/22 00:20 99 H 10/25/22 23:55 109 H 18 116/64 98 Room Air 10/25/22 22:00 85 18 115/62 97 Room Air PG Care Time/CCT Total # of Minutes Spent Total Time Spent with Patient: Total time spent is greater than 50% in coordination of care (as documented) at patient's floor/unit and/or counseling patient: Coding Level of Care Code 59366 IN/OBS CONSULT LVL 4,60M Diagnoses Acute UTI N39.0 Metastatic disease C79.9
[2022-10-26] MEDS: ENOXAPARIN INJ 30 MG/0.3 ML SYR SQ SCH (09:13)
--- NOTE | 2022-10-26 10:38 | Electrocardiogram Report ---
Test Reason : Blood Pressure : / mmHG Vent. Rate : 100 BPM Atrial Rate : 100 BPM P-R Int : 148 ms QRS Dur : 086 ms QT Int : 374 ms P-R-T Axes : 079 033 160 degrees QTc Int : 482 ms Sinus rhythm with Premature supraventricular complexes Low voltage QRS T wave abnormality, consider anterolateral ischemia Prolonged QT Abnormal ECG When compared with ECG of 22-MAY-2021 14:52, Premature supraventricular complexes are now Present Nonspecific T wave abnormality now evident in Inferior leads T wave inversion now evident in Anterolateral leads Confirmed by Himanshu Gregory ([id number]) on 10/26/2022 10:38:23 AM Referred By: REFERRED SELF Confirmed By:Himanshu Gregory
[2022-10-26] MEDS ORDERED: RASPBERRY SYRUP 5 ML UDP PO SCH (12:00)
[2022-10-26] MEDS ORDERED: VANCOMYCIN HCL 125 MG/2.5ML SOLN PO SCH (12:00)
[2022-10-26] MEDS ORDERED: SENNOSIDES 8.8 MG/5 ML UDC PO ONE (12:25)
[2022-10-26] MEDS: CIPROFLOXACIN / D5W 400 MG/200 ML BAG IV SCH (13:56)
[2022-10-27] MEDS: CIPROFLOXACIN / D5W 400 MG/200 ML BAG IV SCH (00:23)
[2022-10-27] MEDS: LEVOTHYROXINE SODIUM 75 MCG TABLET PO SCH (05:37)
[2022-10-27 08:08] LABS: Hematocrit (blood only) 24.8 % (37.0-47.0); Hemoglobin 8.3 g/dl (12.0-16.0); Mean Corpuscular Hemoglobin 30.5 pg (25.0-34.0); Mean Corpuscular Hgb Conc 33.5 g/dL (32.0-36.0); Mean Corpuscular Volume 91.2 fL (80.0-100.0); Mean Platelet Volume 10.3 fL (9.4-12.4); Platelet Count 231 K/uL (130-400); RDW Coefficient of Variation 16.1 % (11.5-14.5); RDW Standard Deviation 53.9 fL (36.4-46.3); Red Blood Count 2.72 M/uL (4.20-5.40); White Blood Count 17.78 K/ul (4.8-10.8)
[2022-10-27 08:45] LABS: Calcium 8.4 mg/dl (8.6-10.3); Magnesium 1.9 mg/dl (1.7-2.4)
[2022-10-27 08:51] LABS: BUN Creatinine Ratio 21.1 (10-20); Creatinine Clr Calc Pharmacy 24.9 ml/min; Est GFR (African American) 40.3 ml/min; Est GFR (Non-African American) 34.8 ml/min
[2022-10-27] MEDS: ENOXAPARIN INJ 30 MG/0.3 ML SYR SQ SCH (09:05)
--- NOTE | 2022-10-27 09:13 | Radiation OncologyConsultation ---
Date of Consultation October 27, 2022 Assessment & Plan (1) Metastatic disease: 1. She will continue on her current antibiotic therapy. There is been improvement in the leukocytosis as well as creatinine. 2. Medical records from [facility] have been reviewed. Recommendation was for biopsy and then decision on chemotherapy. 3. Recommendation for palliative radiation therapy for the pain management of pelvic/abdominal masses as well as periureteral mass. 4. Patient was brought to radiation oncology for CT simulation. She was in agreement to have this performed. 5. She can begin treatment when the treatment plans are complete. 6. Patient will be seen by Dr. Tamayo prior to her CT simulation. See his add itional note. Plan ATTENDING ADDENDUM Assessment: Ms. Beverly is a 82-year-old female with a history of breast cancer who now likely presents with metastatic endometrial cancer versus breast cancer. The patient has been previously seen by gynecology oncology at [facility] and the recommendation is for consideration of biopsy of one of the masses to confirm type of metastatic disease. Additionally, the patient is scheduled to see medical oncology regarding potential systemic therapy. The patient is admitted to the hospital right now due to issues with her nephrostomy tube and also does have some intermittent abdominal pain due to metastatic disease in the anterior abdominal wall. We have been asked to see the patient regarding the role of radiation therapy. Recommendation: Palliative radiation therapy to anterior abdominal wall metastasis, left pelvic metastasis potentially causing ureteral obstruction. Plan: 1. CT simulation for treatment planning for radiation therapy. Radiation therapy may start in the inpatient setting or outpatient setting. 2. Medical oncology input appreciated. 3. Palliative care consultation in the outpatient or inpatient setting. 4. Patient and family encouraged to call us with any further questions or concerns. Rationale/Explanation of Treatment: I did explain the indications, alternatives, benefits, risks and side effects of external beam radiation therapy. I did explain the most common side effects including, but not limited to, skin erythema, skin breakdown, hyperpigmentation, telangiectasia, wound complications, perianal fistula development, fistula formation, bowel obstruction, kidney damage, spinal cord damage, bowel perforation, vaginal dryness, vaginal stenosis, dyspareunia, dysuria, increased urinary frequency, urgency, diarrhea, constipation, melena, hematochezia, hematuria, radiation cystitis, radiation proctitis, fatigue, decreased blood counts, wound complications from surgery, urinary incontinence, rectal incontinence, secondary malignancy development. I did explain the procedures and daily process of radiation therapy. I have explained to the patient that there is an increased risk of overlap from the previous course of radiation therapy and the current course of radiation therapy which can increase the risk of all acute and late side effects of radiation therapy. History of Present Illness Reason for Consultation: Pelvic wall masses and mass with ureteral obstruction. Requesting Physician: Dr. Faith Attending Physician: William Faith MD History of Present Illness This is an 82-year-old white female with a known history of breast cancer treated with lumpectomy and sentinel lymph node biopsy. This was followed with adjuvant radiation therapy and completed 08/07/2015. She received 5130 cGy utilizing hypofractionation. Patient was diagnosed with endometrial adenocarcinoma. 10/23/2021. She underwent laparoscopic total abdominal hysterectomy, bilateral salpingo-oophorectomy and lymph node removal. Partial omentectomy. Path report revealed stage III, FIGO grade 2 endometrial adenocarcinoma. Peritoneal nodules were biopsied and were positive. Her molecular profile showed loss of MLH1 and PMS2. Caris testing showed ER/MA positive of 80% and MSI high. 11/28/2021. Patient was to begin chemotherapy with carboplatin/paclitaxel. She declined to undergo chemotherapy. She has developed increasing abdominal pelvic pain. She has been over 2 to 3 months time. She did undergo an evaluation with a CT. 10/08/2022. Emergency room evaluation for abdominal pain. 10/08/2022. CT of abdomen pelvis. IMPRESSION: 1. Mild wall thickening with pericolonic infiltration involving the descending and sigmoid colon. This favors a nonspecific colitis over acute diverticulitis. No free air. No abscess. No bowel obstruction. 2. Left nephrostomy catheter in place. Mild left hydronephrosis with delayed nephrogram. 3. Multiple pelvic implants/pathologic nodes, including bilateral rectus sheath implants and a left pelvic sidewall implant. These findings are consistent with metastatic disease. 4. Mild bladder wall thickening with adjacent stranding. This correlates with urinalysis. With the finding of the multiple pelvic implants she was referred to gynecologic oncology at [facility]. 10/16/2022. Gynecologic oncologic consultation (Dr. Chandan Shah-[facility] [place]). Recommendation for CT of the chest, abdomen and pelvis. Radiation oncology referral. Recommendation of CT-guided biopsy of the pelvic/groin mass. Plan for future chemotherapy Taxol/carboplatin/Keytruda for oral endocrine therapy. 10/25/2022. Hospital admission due to abdominal pain. Urinary tract infection with leukocytosis. 10/25/2022. CT of abdomen and pelvis. IMPRESSION: 1. Soft tissue mass lesion in the right and left rectus abdominis muscles, suggestive of metastatic disease, similar to prior study 2. Mild left hydroureteronephrosis, more prominent than prior study 3. Left obturator and right inguinal lymphadenopathy 10/27/2022. Radiation oncology consultation (Dr. Rios Tamayo). Patient is currently without pain in the pelvis. She is having difficulty with raising her left leg. She is anxious to begin treatment. She stated that she would like to have radiation therapy here in [place] as well as chemotherapy. She has had improvement in the leukocytosis and improvement of the creatinine. She is in agreement to have her CT simulation. She is familiar with the process of treatment in the prior radiation therapy to the breast. Allergies Allergy/AdvReac Type Severity Reaction Status Date / Time Penicillins Allergy Unknown Swelling/Hi Verified 10/26/22 00:39 ves Home Medications Medication Instructions Recorded Confirmed Type glucosamine sulf dipot 1 cap PO DAILY 02/17/20 10/25/22 History chlr,msm,chond 550 mg-C 30 mg-rick 1 mg capsule (Glucosamine Chondroitin) levothyroxine 75 mcg tablet 75 mcg PO QAM 02/17/20 10/25/22 History (Synthroid) cholecalciferol (vitamin D3) 25 0 mcg PO DAILY 10/25/22 10/25/22 History mcg (1,000 unit) tablet (Vitamin D3) coffee extract 100 mg-phosphatidyl 0 cap PO DAILY 10/25/22 10/25/22 History serine 100 mg capsule (Neuriva Original) Patient History Medical History (Updated 10/27/22 @ 09:12 by Radha Patel PA-C) Basal cell carcinoma Breast cancer (03/28/15) On 06/21/15 11:19 Rios Tamayo wrote "DIAGNOSIS: Right breast, invasive ductal carcinoma, grade 2, ER/MA positive, Her2 negative, [id number], stage IA 1. Lumpectomy/SLN - 05/09/15 (Dr. Markham)" Hypothyroidism (acquired) Squamous cell carcinoma Surgical History H/O lumpectomy History of cataract surgery History of hysteroscopy History of thyroid surgery Family History Mother Breast cancer Father Melanoma Denies family history of Ovarian cancer Colorectal cancer Social History Smoking Status: Never smoker Tobacco Type: Cigarettes Do You Dip or Chew Tobacco: No; Hx Alcohol Use: No Hx Substance Use: No Preferred Language: Pashto Communication Ability: Effective Medical Laboratory Scientist Required: No Beliefs That Will Affect Care: None Current Living Situation: Spouse and Family Current Living Situation Comment: lives w/ & 2 stepsons Other Information That Helps Us Care for You: No Feels Safe at Home: Yes Safety Concerns: Feels Safe At This Time Assistive Devices: Cane and Walker Radiation History DIAGNOSIS: 2015. Right breast cancer. 2021. Endometrial Cancer. TREATMENT: 08/07/2015. Status post completion of radiation therapy to the right breast. She received 5130 cGy utilizing hypofractionation. Physical Exam Constitutional: WD/WN, vitals as above Anxious Eyes: EOM intact bilaterally ENMT: Ears: no hearing impairment Neck: trachea midline, no thyromegaly Respiratory: normal respiratory effort, lungs clear to auscultation Cardiovascular: RRR, no murmur, no edema Gastrointestinal (Abdomen): normal bowel sounds, soft, nontender, no hepatosplenomegaly Left flank percutaneous nephrostomy tube is draining clear urine. There is no tenderness to palpation in the suprapubic area. Abdominal wall masses are not easily appreciated on examination. Skin: no rashes, warm and dry Neurologic: She has decreased strength in her left leg. There is pain in the thigh with flexion. Psychiatric: A+Ox3, euthymic affect PG Care Time/CCT Total # of Minutes Spent Total Time Spent with Patient: Total time spent is greater than 50% in coordination of care (as documented) at patient's floor/unit and/or counseling patient: Coding Level of Care Code 24901 INT INP/OBS CARE 2/55MIN Diagnoses Metastatic disease C79.9
[2022-10-27] MEDS: ONDANSETRON INJ 2 MG/ML 2 ML VIAL IV PRN (15:54)
--- NOTE | 2022-10-27 18:32 | Hospitalist Progress Note ---
Date of Service October 27, 2022 Assessment & Plan (1) Urinary tract infection: Plan: Percutaneous nephrostomy tube with decreased output increased debris + leukocytosis + procalcitonin elevation, concern for UTI POA -CTAP does not demonstrate acute pyelonephritis or nephro/ureterolithiasis though L hydroureteronephrosis noted to be worsened than previous -Ciprofloxacin given in ED, will continue -BCx, UCx gram negative bacilli -Urology consulted recommend flushing percutaneous nephrostomy tube (2) Metastatic disease: Plan: -Extensive cancer history w/ active gastric cancer being managed at [facility], reportedly was supposed to establish care at [facility] but cannot make appointment on the calendar day of 330 patient is open to having her malignancy managed here has previously been treated by Dr. Rios Tamayo for her breast cancer We will of oncology consult and radiation oncology consult on 08/27, sim for xrt other malignancies are breast, basal cell, and recently eval for endometrial m ass - (3) Leukocytosis: Plan: -WBC 30, significantly increased from 14 on 10/08 -with recent C Diff infection however patient is very constipated therefore will not retest stool at this time and actually give laxatives (4) Acute kidney injury: Plan: -Improving toward baseline -Suspect pre-renal from poor oral intake -IVF repletion ongoing (5) Elevated troponin: Plan: -Minimally elevated troponin 15 in pt without chest pain or EKG ischemic changes -Will defer TTE or further cardiac workup for now Likely this is demand ischemia there is no persistent trend after serial troponins x3 (6) Clostridium difficile colitis: Plan: -Recently completed treatment Flagyl x7 days for C difficile colitis Leukocytosis is worrisome however patient is noted any bowel movements has been constipated for 4 days or so (7) Hyponatremia: Plan: Acute bcgs-[id number]-Skeh hyponatremia to Na 132 on admission - (8) Anemia: Plan: Chronic seems stable-Hgb 9.7, stable from 9.6 on 10/08 -Normocytic, likely of chronic disease (9) Hypothyroidism: Plan: -Continue levothyroxine Plan Code status: Full DVT ppx: Lovenox 40 mg daily Admission and Anticipated Discharge Date Admission Date: October 25, 2022 Subjective pt feels improved, did see XRT and will see medical oncology Physical Exam Physical Exam: Patient is pleasant she denies any pain she is a nephrostomy tube exiting her left back for this as a dark and yellow liquid with a lot of debris within it Her abdomen in general is nontender I was trying to palpate abdominal masses that may be able to palpate the one on the right Card exam is regular lungs are clear Results & Data Results & Data Vital Signs (Past 12 Hours) Vital Signs Temp Pulse Pulse Resp BP Pulse Ox O2 Del Method 10/27/22 14:29 85 10/27/22 14:37 97.7 F 88 16 102/52 L 96 Room Air 10/27/22 09:15 Room Air 10/27/22 11:36 97.9 F 79 16 129/73 97 Room Air 10/27/22 07:45 98.1 F 80 16 121/72 98 Room Air Laboratory Results reviewed cbc, reviewed prp PG Care Time/CCT Total # of Minutes Spent Total Time Spent with Patient: Total time spent is greater than 50% in coordination of care (as documented) at patient's floor/unit and/or counseling patient: Coding Level of Care Code 99742 SUB INP/OBS CARE 2/35MIN Diagnoses Urinary tract infection N39.0 Metastatic disease C79.9 Leukocytosis D72.829 Acute kidney injury N17.9 Elevated troponin R77.8 Clostridium difficile colitis A04.72 Hyponatremia E87.1 Anemia D64.9 Hypothyroidism E03.9
[2022-10-27] MEDS: MELATONIN 3 MG TAB PO PRN (23:00)
[2022-10-28] MEDS ORDERED: CIPROFLOXACIN / D5W 400 MG/200 ML BAG IV SCH
[2022-10-28] MEDS: ONDANSETRON INJ 2 MG/ML 2 ML VIAL IV PRN ×2 (01:40→09:12)
[2022-10-28] MEDS: LEVOTHYROXINE SODIUM 75 MCG TABLET PO SCH (05:57)
--- NOTE | 2022-10-28 07:05 | Consultation ---
Date of Consultation October 28, 2022 Assessment & Plan (1) Leukocytosis: Improving and almost certainly primarily reflects the marked inflammation related to her urinary tract infection (2) Metastatic disease: 2016 breast cancer was apparently limited stage and seems unlikely to be the source of her current metastatic disease. Her more recent endometrial cancer did present with peritoneal implants and thus is almost certainly the source of the current presentation particularly given that she declined adjuvant chemotherapy at the time. Immediate issue is the urinary tract infection which itself is a consequence of ureteral obstruction but does seem to be improving on antibiotics. She had some leg weakness yesterday but that is also significantly improved. Nevertheless, palliative radiation may be helpful to better restore ureteral function and to preclude any further major limitation of lower extremity function. As she recovers from the infection and completes her radiation, we can certainly reconsider the pros and cons of systemic treatment. Not entirely clear how likely repeat biopsy is to change our treatment recommendations but we can discuss the pros and cons of that. Presuming that we are dealing with recurrent/evolving metastatic endometrial cancer, a paclitaxel/carboplatin base would certainly be worthwhile. I do not see HER2 testing done on the recent Caris testing and would add that to see if we can potentially modulate that backbone with anti-HER2 therapy, alternatively could certainly consider the addition of Keytruda especially attractive given what appears to be microsatellite instability. A less aggressive approach could take advantage of her hormone receptor status with AI with or without everolimus but that is likely to have less immediate efficacy. She has a number of mutations as outlined above and may also be a candidate for investigational treatments as either first or second line. Patient does have some reticence about chemotherapy given a very difficult journey her mother had with her own cancer though recently she has watched her daughter's [id number] go through cancer treatment and tolerate that quite well. Patient is much more open to discussions of chemotherapy as a result. We have emphasized that there will not be "curative" options to offer and that the degree and durability of her response will be uncertain. While we feel that we can control the most significant side effects of chemotherapy for most patients, we have acknowledged that there can be occasional severe and even life-threatening complications that do occur. 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 We do note that tumor testing suggests no BRCA1 or BRCA2 mutation (4) Anemia: Anemia is probably multifactorial with elements of inflammatory suppression of erythropoiesis and is well some relative erythropoietin deficiency in the face of JOCELIN. We will complete anemia work-up with screens of nutritional studies and reticulocyte count and can further address as an outpatient though her hemoglobin levels are currently adequate not need of immediate transfusion Plan Needs to complete antibiotic therapy for her urinary tract infection and is scheduled to pursue radiation therapy to immediately relieve the consequences of her abdominal/pelvic masses. As she completes the latter we will be discussing possible standard and investigational systemic options that she could consider. I will make arrangements for follow-up as an outpatient. Please let me know if there are any additional questions that arise while she is still admitted. History of Present Illness Reason for Consultation: History of breast and endometrial carcinoma now with widespread metastases, asked to comment on salvage chemotherapy options Attending Physician: William Faith MD History of Present Illness Patient had originally presented with a right breast cancer in 2016 treated with lumpectomy/sentinel node biopsy and subsequent radiation. She did not receive chemotherapy at that time and there is been no specific breast recurrence. With abdominal pain she was found to have an endometrial cancer and is status post 10/23/2021 laparoscopic MARIZOL/BSO with lymph node sampling, partial om entectomy. 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 Caris testing showed microsatellite high status and original immunohistochemistry showed loss of MLH1 and PMS2. ER/WA were positive at 80%. Tumor mutational burden was intermediate at 9 mutations per megabyte. She had pathogenic variants of PIK3CA, PTEN, ARID1A (also with two ARID1A VUSs, CTCF, FGFR2, KMT23D, NFE2L2 There were no alterations of BRCA1 or BRCA2 PTL1 was 0% She was offered "adjuvant" Taxol/carbo but declined chemotherapy. With worsening abdominal pain starting at the beginning of this year, she ultimately had a 10/08/2022 CT scan of the abdomen showing multiple pelvic impla nts/pathologic adenopathy with bilateral rectus sheath implants and a left-sided pelvic sidewall implant all consistent with metastatic disease. She was admitted to [facility] [place] with left ureteral obstruction/UTI necessitating placement of a left nephrostomy tube. [facility] oncology consultation while there did suggest radiation oncology referral, possible repeat CT-guided biopsy and consideration of Taxol/carboplatinum/pembrolizumab versus the possibility of less aggressive therapy with AI/everolimus treatment. She is now admitted with acute leukocytosis and relapse of UTI but this was found to be related to a closed stopcock on her nephrostomy tube. She is improving significantly with antibiotics and is actually scheduled to be discharged later today Radiation therapy is seeing the patient and plans short course radiation to temporize with the abdominal mass/ureteral obstruction She otherwise is without major health issues She notes that her mother had breast cancer at the age of 69 but there is otherwise no family history of breast, ovarian, pancreatic, colon, or other major malignancy Allergies Allergy/AdvReac Type Severity Reaction Status Date / Time Penicillins Allergy Unknown Swelling/Hi Verified 10/26/22 00:39 ves Home Medications Medication Instructions Recorded Confirmed Type glucosamine sulf dipot 1 cap PO DAILY 02/17/20 10/25/22 History chlr,msm,chond 550 mg-C 30 mg-rick 1 mg capsule (Glucosamine Chondroitin) levothyroxine 75 mcg tablet 75 mcg PO QAM 02/17/20 10/25/22 History (Synthroid) cholecalciferol (vitamin D3) 25 0 mcg PO DAILY 10/25/22 10/25/22 History mcg (1,000 unit) tablet (Vitamin D3) coffee extract 100 mg-phosphatidyl 0 cap PO DAILY 10/25/22 10/25/22 History serine 100 mg capsule (Neuriva Original) Patient History Medical History (Updated 10/28/22 @ 07:08 by Victor Manuel Barriga MD) Basal cell carcinoma Breast cancer (03/28/15) On 06/21/15 11:19 Rios Tamayo wrote "DIAGNOSIS: Right breast, invasive ductal carcinoma, grade 2, ER/WA positive, Her2 negative, [id number], stage IA 1. Lumpectomy/SLN - 05/09/15 (Dr. Markham)" Hypothyroidism (acquired) Squamous cell carcinoma Surgical History H/O lumpectomy History of cataract surgery History of hysteroscopy History of thyroid surgery Family History Mother Breast cancer Father Melanoma Denies family history of Ovarian cancer Colorectal cancer Social History Smoking Status: Never smoker Tobacco Type: Cigarettes Do You Dip or Chew Tobacco: No; Hx Alcohol Use: No Hx Substance Use: No Preferred Language: Ukrainian Communication Ability: Effective Art Historian Required: No Beliefs That Will Affect Care: None Current Living Situation: Spouse and Family Current Living Situation Comment: lives w/ & 2 stepsons Other Information That Helps Us Care for You: No Feels Safe at Home: Yes Safety Concerns: Feels Safe At This Time Assistive Devices: Cane and Walker Physical Exam Physical Exam: Afebrile, vital signs stable Patient currently is in no acute distress. She has no dramatic adenopathy in the cervical, supraclavicular, or axillary regions. Lungs seem clear and the cardiac rhythm is regular The abdomen is flat without gross ascites or marked current tenderness Neurologically she is actually now able to support her weight and walk and seems to have good strength in both lower extremities Results & Data Vital Signs (Past 12 Hours) Vital Signs Temp Pulse Pulse Resp BP Pulse Ox O2 Del Method 10/28/22 04:05 36.7 C 75 18 113/62 96 Room Air 10/27/22 22:00 85 10/27/22 23:00 36.7 C 84 18 124/75 97 Room Air 10/27/22 23:17 36.7 C 74 18 132/70 97 Room Air 10/27/22 19:00 36.4 C L 82 18 143/76 H 96 Room Air Laboratory Results Laboratory Results - last 24 hr 10/27/22 10/27/22 07:16 07:16 WBC 17.78 H RBC 2.72 L Hgb 8.3 L Hct 24.8 L MCV 91.2 MCH 30.5 MCHC 33.5 RDW Std Deviation 53.9 H RDW Coeff of Nat 16.1 H Plt Count 231 MPV 10.3 Sodium 132 L Potassium 4.0 Chloride 102 Carbon Dioxide 23 Anion Gap 7 BUN 30 H Creatinine 1.42 H Est Cr Clr Drug Dosing 24.9 Est GFR ( Amer) 40.3 Est GFR (Non-Af Amer) 34.8 BUN/Creatinine Ratio 21.1 H Glucose 91 Calcium 8.4 L Magnesium 1.9 Diagnostic Findings Abdomen/Pelvis CT 10/25/22 18:19 Exam(s): CT ABDOMEN + PELVIS With Contrast IV Amt: 88ML OPTIRAY 320 EXAM: CT Abdomen and Pelvis With Intravenous Contrast CLINICAL HISTORY: Reason for exam: fever vomitting stomach ca. TECHNIQUE: Axial computed tomography images of the abdomen and pelvis with intravenous contrast. CTDI is is advised 13.11 mGy and DLP is 593.64 mGy- cm. Automated exposure control was utilized for the study. A dose lowering technique was utilized adhering to the principles of ALARA. CONTRAST: Patient received 88ML OPTIRAY 320 of IV contrast COMPARISON: 10/08/22 FINDINGS: Lung bases: Unremarkable. No mass. No consolidation. ABDOMEN: Liver: There is 1.4 cm left hepatic cyst. Gallbladder and bile ducts: Unremarkable. No calcified stones. No ductal dilation. Pancreas: Unremarkable. No mass. No ductal dilation. Spleen: Unremarkable. No splenomegaly. Adrenals: Unremarkable. No mass. Kidneys and ureters: There is mild left-sided hydroureteronephrosis. Left nephrographic density is lower than the right nephrographic density. There is left-sided percutaneous nephrostomy. Stomach and bowel: Sigmoid colonic diverticulosis. No obstruction. No mucosal thickening. PELVIS: Appendix: No findings to suggest acute appendicitis. Bladder: Unremarkable. No mass. Reproductive: Unremarkable as visualized. ABDOMEN and PELVIS: Intraperitoneal space: Unremarkable. No free air. No significant fluid collection. Bones/joints: No acute fracture. No dislocation. Soft tissues: There is 5.8 cm diameter heterogenous density mass lesion seen in the right rectus abdominis muscle. 3.1 cm soft tissue mass seen in the left rectus abdominis muscle. Vasculature: Ascending aorta is ectatic, measuring up to 3.8 cm in diameter. No abdominal aortic aneurysm. Lymph nodes: 5.9 cm short axis diameter right retrocrural lymph node is seen. There is 1.5 x 2.5 cm left obturator lymphadenopathy 1.2 cm short axis diameter right inguinal lymphadenopathy is seen. IMPRESSION: 1. Soft tissue mass lesion in the right and left rectus abdominis muscles, suggestive of metastatic disease, similar to prior study 2. Mild left hydroureteronephrosis, more prominent than prior study 3. Left obturator and right inguinal lymphadenopathy Electronically signed by: Luis F Nguyen MD 10/25/22 22:04 PM Chest X-Ray 10/25/22 18:20 XR chest 1V portable CLINICAL HISTORY: Sepsis TECHNIQUE: Single frontal radiograph of the chest was obtained. Comparison: Comparison is made to chest radiograph 02/17/2020 FINDINGS: No lines and tubes are seen. The cardiomediastinal silhouette is normal. The lungs are clear. No evidence of pleural effusion or pneumothorax. IMPRESSION: No acute abnormalities and in particular no radiographic evidence of pneumonia. ACT 112: Negative or not required by law. Electronically signed by: Asif Lin M.D. 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
[2022-10-28] MEDS ORDERED: CEFEPIME 2,000 MG in SYRINGE 0 ML IV ONE (07:30)
--- NOTE | 2022-10-28 08:17 | Hospitalist Progress Note ---
Date of Service October 28, 2022 Assessment & Plan (1) Urinary tract infection: Plan: Percutaneous nephrostomy tube with decreased output increased debris + leukocytosis + procalcitonin elevation, concern for UTI POA -CTAP does not demonstrate acute pyelonephritis or nephro/ureterolithiasis though L hydroureteronephrosis noted to be worsened than previous -Ciprofloxacin given in ED, -BCx, UCx gram negative bacilli-pseudomonas changed to cefepime UTI due to percutaneous nephrostomy tube, a complication of care -Urology consulted recommend flushing percutaneous nephrostomy tube (2) Metastatic disease: Plan: -Extensive cancer history w/ active gastric cancer being managed at [facility] [place], patient is satisfied with having her management here as she previously had treatment here by Dr. Tamayo Oncology and radiation oncology consults are greatly appreciated patient had simulation for XRT and plans for outpatient treatment other malignancies are breast, basal cell, and recently eval for endometrial mass - (3) Leukocytosis: Plan: -Leukocytosis is now normal suspect secondary to Pseudomonas UTI present on admission associated with urinary catheter (4) Acute kidney injury: Plan: -Improving toward baselineresolving -Suspect pre-renal from poor oral intake -IVF repletion ongoing (5) Elevated troponin: Plan: -Minimally elevated troponin 15 in pt without chest pain or EKG ischemic changes -Will defer TTE or further cardiac workup for now Likely this is demand ischemia there is no persistent trend after serial troponins x3 (6) Clostridium difficile colitis: Plan: -Recently completed treatment Flagyl x7 days for C difficile colitis Leukocytosis is worrisome however patient is noted any bowel movements has been constipated for 4 days or so (7) Hyponatremia: Plan: Acute [id number] hyponatremia to Na 132 on admission - (8) Anemia: Plan: Chronic seems stable-Hgb 9.7, stable from 9.6 on 10/08 -Normocytic, likely of chronic disease iron is low but total iron binding capacity is low and ferritin is up (9) Hypothyroidism: Plan: -Continue levothyroxine Plan Patient remains in the hospital as we need to evaluate if her nephrostomy tube needs to be changed appropriate antibiotics for Pseudomonas urinary tract infection only intravenous at this point Code status: Full DVT ppx: Lovenox 40 mg daily Admission and Anticipated Discharge Date Admission Date: October 25, 2022 Subjective Patient feels in proved. Urine has grown resistant Pseudomonas. Please with discussions with oncology and radiation oncology. Is satisfied about staying in our facility. Pending PT OT evaluation. Physical Exam Physical Exam: Awake alert appropriate. Left nephrostomy tube is draining more clear liquid today. Site is nontender. Above PT evaluate her strength. Likely with her drug-resistant Pseudomonas she will need a few additional days of inpatient antibiotic therapy Results & Data Results & Data Vital Signs (Past 12 Hours) Vital Signs Temp Pulse Pulse Resp BP Pulse Ox O2 Del Method 10/28/22 04:05 98.1 F 75 18 113/62 96 Room Air 10/27/22 22:00 85 10/27/22 23:00 98.1 F 84 18 124/75 97 Room Air 10/27/22 23:17 98.1 F 74 18 132/70 97 Room Air Laboratory Results Reviewed CBC Reviewed chemistry Iron is low ferritin is up PG Care Time/CCT Total # of Minutes Spent Total Time Spent with Patient: Total time spent is greater than 50% in coordination of care (as documented) at patient's floor/unit and/or counseling patient: Coding Level of Care Code 63606 SUB INP/OBS CARE 2/35MIN Diagnoses Urinary tract infection N39.0 Metastatic disease C79.9 Leukocytosis D72.829 Acute kidney injury N17.9 Elevated troponin R77.8 Clostridium difficile colitis A04.72 Hyponatremia E87.1 Anemia D64.9 Hypothyroidism E03.9
[2022-10-28] MEDS: ENOXAPARIN INJ 30 MG/0.3 ML SYR SQ SCH (09:00)
[2022-10-28 09:51] LABS: Hematocrit (blood only) 27.2 % (37.0-47.0); Hemoglobin 8.8 g/dl (12.0-16.0); Mean Corpuscular Hemoglobin 29.4 pg (25.0-34.0); Mean Corpuscular Hgb Conc 32.4 g/dL (32.0-36.0); Mean Platelet Volume 10.3 fL (9.4-12.4); Platelet Count 276 K/uL (130-400); RDW Coefficient of Variation 16.1 % (11.5-14.5); RDW Standard Deviation 53.3 fL (36.4-46.3); Red Blood Count 2.99 M/uL (4.20-5.40); Reticulocyte % 1.9 % (0.5-2.0); Reticulocytes # 0.06 10^6/uL (0.02-0.10); White Blood Count 9.15 K/ul (4.8-10.8)
[2022-10-28 10:15] LABS: Calcium 8.5 mg/dl (8.6-10.3); Potassium 3.7 mmol/L (3.5-5.1)
[2022-10-28 10:20] LABS: BUN Creatinine Ratio 20.7 (10-20); Creatinine Clr Calc Pharmacy 31.9 ml/min; Est GFR (African American) 54.3 ml/min; Est GFR (Non-African American) 46.9 ml/min
[2022-10-28 10:26] LABS: Ferritin 863.1 ng/ml (8-388)
[2022-10-28] MEDS: CEFEPIME 1,000 MG in SYRINGE 0 ML IV SCH (19:25)
[2022-10-28] MEDS: MELATONIN 3 MG TAB PO PRN (23:54)
[2022-10-29] MEDS: LEVOTHYROXINE SODIUM 75 MCG TABLET PO SCH (05:50)
[2022-10-29 07:28] LABS: Hematocrit (blood only) 29.2 % (37.0-47.0); Hemoglobin 9.4 g/dl (12.0-16.0); Mean Corpuscular Hemoglobin 29.8 pg (25.0-34.0); Mean Corpuscular Hgb Conc 32.2 g/dL (32.0-36.0); Mean Corpuscular Volume 92.7 fL (80.0-100.0); Mean Platelet Volume 9.8 fL (9.4-12.4); Platelet Count 337 K/uL (130-400); RDW Coefficient of Variation 15.8 % (11.5-14.5); RDW Standard Deviation 53.6 fL (36.4-46.3); Red Blood Count 3.15 M/uL (4.20-5.40)
[2022-10-29 07:43] LABS: Est GFR (African American) 61.6 ml/min; Est GFR (Non-African American) 53.2 ml/min; Magnesium 2.1 mg/dl (1.7-2.4)
[2022-10-29] MEDS: ENOXAPARIN INJ 30 MG/0.3 ML SYR SQ SCH (09:27)
[2022-10-29] MEDS: CEFEPIME 1,000 MG in SYRINGE 0 ML IV SCH (09:27)
--- NOTE | 2022-10-29 17:46 | Discharge Summary ---
Date of Service October 29, 2022 Admission HPI Per Admitting Provider Pt is 82 yo F with PMH breast cancer s/p lumpectomy + radiation, SCC, BCC, stage III endometrial cancer s/p hysterectomy + b/l salpingo-oophorectomy + pelvic node removal + partial omentectomy, gastric cancer being treated at [facility], metastatic disease, L renal mass w/ nephrostomy tube placed about 5 weeks prior at [facility], hypothyroidism, multiple UTIs presenting with multiple symptoms. Pt reports 10 weeks' worth of symptoms- general malaise, fatigue, subjective fever/chills, nausea, generalized abdominal pain, poor oral intake, night sweats. Pt recently hospitalized at [facility] 09/22 - 09/27 for UTI w/ hydronephrosis + JOCELIN, underwent L percutaneous nephrostomy + treated with cefepime -> Bactrim. She was seen in [facility] ED about 2 weeks prior and diagnosed with colitis per CT, discharged home without intervention- she was completing cefdinir course for UTI at the time. She went to PCP at [facility] on 10/15 due to persistent symptoms along with watery foul-smelling diarrhea. She did begin treatment for C difficile colitis with Flagyl x7 days at that visit and completed on 10/22. She came to ED due to concern by family and also since her usual nephrostomy drainage was not adequate today- very little UOP. Pt arrived to ER hemodynamically stable, mild tachycardia to 100s. Initial evaluation significant for WBC 30.5, Hgb 9.7, Na 132, BUN 25, Cr 1.36, troponin 15, procalcitonin 2.1, UA with 30+ WBCs, 5-10 epithelial cells. CXR clear. EKG unremarkable. CTAP w/ soft tissue mass lesion in R + L rectus abdominis muscles suggesting metastasis, mild L hydroureteronephrosis, L obturator + R inguinal lymphadenopathy. ER interventions include Zofran, NSS bolus 1L, ciprofloxacin IV. At present, pt reports no change in symptoms. Still reporting significant malaise. No active chest pain. Principal Diagnosis Metabolic encephalopathy Nephrostomy associated Pseudomonas urine tract infection present on admission Metastatic endometrial carcinoma with left hydronephrosis Discharge Exam Patient is in no distress she is actually feeling quite well eating walking Nephrostomy is draining clear liquid Follow-up with oncology and general surgery for Mediport placed we will continue to follow [facility] for nephrostomy Discharge Data Allergies Allergy/AdvReac Type Severity Reaction Status Date / Time Penicillins Allergy Unknown Swelling/Hi Verified 10/26/22 00:39 ves Consultations 10/25/22 22:42 ED Decision to Admit Stat 10/26/22 00:29 Consult Urology Routine 10/27/22 08:00 Consult Radiation Oncology Routine 10/27/22 08:53 Consult Oncology Routine 10/28/22 16:59 HIM [Consult Health Information Management] Routine Ordered Studies 10/25/22 18:19 CT abd pelvis IV con only Stat 10/27/22 09:21 CT guide rad therapy pelvis Routine Hospital Course (1) Urinary tract infection: Percutaneous nephrostomy tube with decreased output increased debris + leukocytosis + procalcitonin elevation, concern for UTI POA -CTAP does not demonstrate acute pyelonephritis or nephro/ureterolithiasis though L hydroureteronephrosis noted to be worsened than previous -Ciprofloxacin given in ED, -BCx, UCx gram negative bacilli-pseudomonas changed to cefepime for 48 hours then will go home on high-dose ciprofloxacin to complete course since it is inte rmediate to ciprofloxacin UTI due to percutaneous nephrostomy tube, a complication of care -Urology consulted recommend flushing percutaneous nephrostomy tube I personally phoned [facility] to discuss the nephrostomy tube they will have follow-up on November 30 recommend no additional interventions at this time unless she has recurrent infections (2) Metastatic disease: -Extensive cancer history w/ active gastric cancer being managed at [facility], patient is satisfied with having her management here as she previously had treatment here by Dr. Tamayo Oncology and radiation oncology consults are greatly appreciated patient had simulation for XRT and plans for outpatient treatment other malignancies are breast, basal cell, and recently eval for endometrial mass - (3) Acute kidney injury: Resolved (4) Elevated troponin: -Minimally elevated troponin 15 in pt without chest pain or EKG ischemic changes - defer TTE or further cardiac workup for now Likely this is demand ischemia (5) Clostridium difficile colitis: -Recently completed treatment Flagyl x7 days for C difficile colitis Leukocytosis is worrisome however patient is noted any bowel movements has been constipated for 4 days or so (6) Hyponatremia: Acute tchc-[place] hyponatremia to Na 132 on admission - (7) Anemia: Chronic seems stable-Hgb 9.7, stable from 9.6 on 10/08 -Normocytic, likely of chronic disease iron is low but total iron binding capacity is low and ferritin is up (8) Hypothyroidism: -Continue levothyroxine Plan Code status: Full Total Time Total Time Spent Total Time Spent (In Minutes): It required greater than 30 minutes to prepare this patient for discharge Discharge Plan Discharge Items Patient Disposition: Home - Self-Care Reason For Visit: UTI, WEAKNESS Discharge Diagnosis: weakness from a pseudomonas uti present on admission associated with neprhostomy tube Activity: Resume your previous activity Non-emergency contact: Primary Care Provider, Surgeon and Specialist Call non-emergency contact if: your symptoms worsen Follow-up/Referrals: Hollis Alcantara MD, FACS [Physician] - 11/19/22 9:30 am Maribell Read PA-C [Primary Care Provider] - 11/05/22 2:25 pm Diet: Regular Addtl Attending Provider Instructions: please take your antibiotics regularly please follow up with [facility] regarding your nephrostomy tube Continue with routine nephrostomy tube care at home please follow up with Kamilla Barriga and Dr Tamayo as typical please watch for signs of infection in your urine bag, cloudiness, fever or increased pain please return to the hospital Pending Studies at Discharge: No Stand-Alone Forms: My [employer], Smoking Cessation Medications and DC Order Prescriptions: New ciprofloxacin HCl [Cipro] 500 mg tablet 500 mg PO BID Qty: 20 0RF ondansetron HCl 4 mg tablet 4 mg PO TID PRN (Reason: nausea and vomiting) Qty: 20 0RF oxycodone 5 mg tablet 5 - 10 mg PO TID PRN (Reason: pain) Qty: 20 0RF Continued levothyroxine [Synthroid] 75 mcg tablet 75 mcg PO QAM Glucosamine Chondroitin 550-30-1 mg Capsule 1 cap PO DAILY cholecalciferol (vitamin D3) [Vitamin D3] 25 mcg (1,000 unit) Tablet 0 mcg PO DAILY Rx Instructions: per pt she hasn't been using the med because she's been feeling bad. Neuriva Original 100-100 mg Capsule 0 cap PO DAILY Rx Instructions: Pt didn't give dose Discharge Orders: Discharge Order (Routine); Ordered 10/29/22 Ordered By: William Faith Admission Data Admit Date/Time: 10/25/22 23:21 Attending Provider: William Faith Admit Provider: Gianni Duvall Primary Care Provider: Maribell Read Other Providers: Po Cazares ; Rios Tamayo ; Victor Manuel Barriga Other Interventions: Discharge Summary Assessment (RN) Last Done: 10/29/22 15:48 Coding Level of Care Code 68900 INP/OBS DISCH >30 MIN Diagnoses Urinary tract infection N39.0 Metastatic disease C79.9 Acute kidney injury N17.9 Elevated troponin R77.8 Clostridium difficile colitis A04.72 Hyponatremia E87.1 Anemia D64.9 Hypothyroidism E03.9
--- NOTE | 2022-11-03 06:41 | Billing Data ---
Date of Service November 03, 2022 Coding Level of Care Code 21723 INT INP/OBS CARE
== END 2022-10-29 16:22 | disposition home health service (06) | DRG 698 ==
LOC: ED 18:11 → 2W 23:21 → SUATTDRO 23:21 → 2W 10-26 00:16
DX: Z16.30 Resistance to unspecified antimicrobial drugs; T83.512A Infection and inflammatory reaction due to nephrostomy catheter, initial encounter; T83.092A Other mechanical complication of nephrostomy catheter, initial encounter; Z79.890 Hormone replacement therapy; N17.9 Acute kidney failure, unspecified; C16.9 Malignant neoplasm of stomach, unspecified; B96.5 Pseudomonas (aeruginosa) (mallei) (pseudomallei) as the cause of diseases classified elsewhere; C79.89 Secondary malignant neoplasm of other specified sites; C77.5 Secondary and unspecified malignant neoplasm of intrapelvic lymph nodes; E87.1 Hypo-osmolality and hyponatremia; D63.0 Anemia in neoplastic disease; E89.0 Postprocedural hypothyroidism; Z20.822 Contact with and (suspected) exposure to COVID-19; Y84.6 Urinary catheterization as the cause of abnormal reaction of the patient, or of later complication, without mention of misadventure at the time of the procedure; Z92.3 Personal history of irradiation; Y73.2 Prosthetic and other implants, materials and accessory gastroenterology and urology devices associated with adverse incidents; K59.00 Constipation, unspecified; Z86.19 Personal history of other infectious and parasitic diseases; G89.3 Neoplasm related pain (acute) (chronic); Z88.0 Allergy status to penicillin; I24.8 Other forms of acute ischemic heart disease; C54.1 Malignant neoplasm of endometrium; G93.41 Metabolic encephalopathy

== ENCOUNTER 2024-07-02 16:39 | Observation (INO) ==
--- NOTE | 2024-07-02 16:48 | Emergency Department Note ---
Impression & Plan Acute dehydration, History of immunotherapy, Nausea vomiting and diarrhea, Hypocalcemia, Hypokalemia, Hypomagnesemia ED Provider Note NAME: RAY CHAVIRA AGE: 83 SEX: F : 1940 ARRIVES VIA: Walk-In INFORMANT: Patient, nursing report ED PROVIDER(S): Patrick Portillo MD CHIEF COMPLAINT: Nausea vomiting diarrhea, outpatient referral MEDICAL DECISION MAKING: Patient presents due to concern for nausea vomiting diarrhea. IV was established and blood work was obtained. Patient was ordered IV fluids. Patient's blood work shows leukopenia mild anemia. Normal platelet count. Kidney function shows prerenal azotemia patient did receive IV fluids. Additional IV fluids ordered by the hospitalist. Hypokalemia 2.8 and calcium of 5.5 with a mag of 1.2. Given the significant electrolyte derangements to be the patient would benefit from admission. Negative C. difficile. I did speak the on-call hospitalist Dr. Smith and the patient was admitted to the medicine service. Discussion w/ other healthcare providers: None Prior /Outside records reviewed: I reviewed part of a radiation oncology visit from May 21, 2023. History of metastatic disease. Patient with a history of prior breast cancer treated with lumpectomy and sentinel lymph node biopsy adjuvant radiation therapy. Patient subsequently diagnosed with endometrial adenocarcinoma in September 2021. Patient's status post hysterectomy bilateral salpingo nephrectomy and lymph node removal and partial omentectomy. Also did review urology visit note from March 19, 2024. Patient did have prior history of left ureteral obstruction did undergo antegrade nephrostogram with contrast drained into her bladder tube was capped followed with BMP creatinine stable and tube was removed May 11, 2023. Differential diagnosis: Gastroenteritis, food borne illness, infection, appendicitis, diverticulitis, inflammatory bowel disease, obstruction among others were considered. Diagnostics, as interpreted by me: ECG: Normal sinus rhythm, rate of 84, normal intervals, normal axis no ST elevations. Cardiac monitoring: An order was placed for continuous cardiac monitoring. The monitor shows a rate of 85 with sinus rhythm. Patient was placed on pulse oximetry Medical decision rules: None Imaging studies: None HPI: Patient presents due to concern for nausea vomiting and diarrhea. Patient reports that she began having symptoms around 5 or 6 last evening and it persisted about 5 AM this morning. The patient did call the cancer center was referred here for further evaluation treatment possible dehydration. Patient states that she does not have any pain currently not nauseous. No known sick contacts or recent travel. The patient is undergoing Keytruda immunotherapy infusions every 6 weeks for prior history of abdominal cancer. Patient states that she has been able to pass stool which has been loose. No known sick contacts or recent travel no changes of diet. Patient denies any chest pains or shortness of breath no fever. PAST MEDICAL HISTORY: See Below PAST SURGICAL HISTORY: See Below SOCIAL HISTORY: See Below HOME MEDICATIONS: See Below ALLERGIES: See Below VITALS: See Below PHYSICAL EXAMINATION: GENERAL: NAD, non-toxic. EYE EXAM: Normal conjunctiva. PERRL, no anisocoria and EOM's grossly intact w/o pain. OROPHARYNX: Dry mucus membranes, grossly normal dentition. NECK: Trachea midline, no stridor. Supple, no nuchal rigidity, no adenopathy, non-tender. No signs of meningismus. FROM of the neck with good chin to chest and neck extension. LUNGS: Clear to auscultation. Normal chest wall mechanics. HEART: NSR, no MRG. ABDOMEN: Abdomen soft, non-tender, no masses, no rebound or guarding. BACK: No CVA TTP. SKIN: No rashes and no bruising. UPPER EXTREMITIES: Upper extremities are grossly normal. LOWER EXTREMITIES: Grossly normal, no edema. NEURO EXAM: A&O x3, cranial nerves II-XII grossly intact, normal speech, moves all 4 extremities. Past Med/Surg History Problem List (Updated 07/02/24 @ 19:13 by Patrick Portillo MD) Hypomagnesemia (Acute) Hypokalemia (Acute) Hypocalcemia (Acute) Nausea vomiting and diarrhea (Acute) History of immunotherapy (Acute) Acute dehydration (Acute) Ureteral obstruction, left Encounter for insertion of venous access port Encounter for pre-operative examination Genetic carrier status Weakness (Acute) Elevated troponin (Acute) Acute UTI (Acute) Hypothyroidism Acute kidney injury Metastatic disease (Chronic) Clostridium difficile colitis Hyponatremia Elevated troponin Leukocytosis Urinary tract infection Endometrial mass Medical History 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 + mets. hx surgery. History of squamous cell carcinoma History of basal cell carcinoma Anemia Stable Hypothyroidism (acquired) Breast cancer (03/28/15) Right breast, invasive ductal carcinoma Lumpectomy/SLN- 2014 Surgical History Port-A-Cath in place (12/03/22) Insertion Access Port with Fluoroscopy(Left) - Hollis Alcantara MD, FACS Screening for colorectal cancer Patient does cologuard History of surgery nephrostomy tube in place Slow to wake up after anesthesia History of lymph node biopsy History of total abdominal hysterectomy and bilateral salpingo-oophorectomy History of removal of Port-a-Cath History of vascular access device History of breast biopsy History of squamous cell carcinoma excision History of D&C History of basal cell carcinoma (BCC) excision History of tubal ligation History of carpal tunnel release BL History of partial thyroidectomy History of tonsillectomy H/O lumpectomy Rt - malignant (2016) Rt - benign (2000) History of cataract surgery BL History of hysteroscopy Family History Mother Breast cancer Father Melanoma Cancer Heart disease Other No family history of adverse response to anesthesia Denies family history of Ovarian cancer Colorectal cancer Social History Smoking Status: Never smoker Tobacco Type: Cigarettes Second Hand Exposure: Yes (hx); Do You Dip or Chew Tobacco: No; Hx Alcohol Use: No Hx Substance Use: No Preferred Language: Palauan Communication Ability: Effective Vocational Nursing Instructor Required: No Beliefs That Will Affect Care: None marital status: Current Living Situation: Spouse and Family Current Living Situation Comment: lives w/ & 2 stepsons current occupational status: retired How many Children do You have: 1 How many Children do You have Comment: 1 biological, 4 Step children Feels Safe at Home: Yes Diet: regular during the past year weight has: decreased > 10 lbs Assistive Devices: Glasses Allergies Allergies Allergy/AdvReac Type Severity Reaction Status Date / Time Penicillins Allergy Unknown Swelling/Hi Verified 03/28/24 10:41 ves acetaminophen [From Tylenol] Allergy Hives Verified 03/28/24 10:41 amoxicillin Allergy Hives Verified 03/28/24 10:41 Home Meds Home Medications Medication Instructions Recorded Confirmed glucosamine sulf dipot 1 cap PO QPM 02/17/20 07/02/24 chlr,msm,chond 550 mg-C 30 mg-rick 1 mg capsule (Glucosamine Chondroitin) coffee extract 100 mg-phosphatidyl 1 cap PO QPM 10/25/22 07/02/24 serine 100 mg capsule (Neuriva Original) calcium carbonate (Tums) 300 mg PO TID PRN Gi Upset 11/30/22 07/02/24 cholecalciferol (vitamin D3) 50 50 mcg PO QAM 04/30/23 07/02/24 mcg (2,000 unit) capsule (Vitamin D3) ferrous sulfate 27 mg iron tablet 27 mg PO DAILY 03/28/24 07/02/24 levothyroxine 88 mcg tablet 88 mcg PO DAILYBB 07/02/24 07/02/24 Results & Data (ED) Vital Signs Vital Signs - 24 hr 07/02/24 16:43 07/02/24 17:13 07/02/24 17:14 Temperature 36.8 C Temperature Source Temporal Artery Scan Pulse Rate 98 H 88 Pulse Rate [Finger] Respiratory Rate 18 Blood Pressure 113/68 Blood Pressure [Left Arm] Blood Pressure Mean 83 Blood Pressure Mean [Left Arm] Pulse Oximetry 96 95 Oxygen Delivery Method Room Air Room Air Sepsis Recent Fever Within 48 Hours No Sepsis New/Unexplained Change in Mental Status N/A Sepsis Action Taken by Nursing No Action Required 07/02/24 17:45 Temperature Temperature Source Pulse Rate Pulse Rate [Finger] 85 Respiratory Rate 20 Blood Pressure Blood Pressure [Left Arm] 100/54 L Blood Pressure Mean Blood Pressure Mean [Left Arm] 69 Pulse Oximetry 96 Oxygen Delivery Method Room Air Sepsis Recent Fever Within 48 Hours Sepsis New/Unexplained Change in Mental Status Sepsis Action Taken by [facility] Medications Current Medication List: was personally reviewed by me Laboratory Data Attestation: I reviewed the patient's lab results. 07/02/24 17:35 07/02/24 17:35 Lab Results 07/02/24 07/02/24 Range/Units 16:54 17:35 WBC 3.29 L (4.8-10.8) K/ul RBC 3.15 L (4.20-5.40) M/uL Hgb 9.9 L (12.0-16.0) g/dl Hct 29.8 L (37.0-47.0) % MCV 94.6 (80.0-100.0) fL MCH 31.4 (25.0-34.0) pg MCHC 33.2 (32.0-36.0) g/dL RDW Std Deviation 45.2 (36.4-46.3) fL RDW Coeff of Nat 13.0 (11.5-14.5) % Plt Count 141 (130-400) K/uL MPV 9.1 L (9.4-12.4) fL Immature Gran % (Auto) 0.3 % Neut % (Auto) 82.4 % Lymph % (Auto) 8.2 % [place]aton % (Auto) 8.8 % Eos % (Auto) 0.0 % Baso % (Auto) 0.3 % Neut # (Auto) 2.71 (1.40-6.50) K/uL Lymph # (Auto) 0.27 L (1.20-3.40) K/uL Eaton # (Auto) 0.29 (0.11-0.59) K/uL Eos # (Auto) 0.00 (0.00-0.50) K/uL Baso # (Auto) 0.01 (0.00-0.20) K/uL Immature Gran # (Auto) 0.01 (0.01-0.20) K/uL Toxic Vacuolation 1+ Polychromasia 1+ Sodium 141 (136-145) mmol/L Potassium 2.8 L (3.5-5.1) mmol/L Chloride 118 H (98-107) mmol/L Carbon Dioxide 16 L (21-32) mmol/L Anion Gap 7 (3-11) BUN 29 H (6-23) mg/dl Creatinine 0.69 (0.6-1.2) mg/dl Est Cr Clr Drug Dosing 49.9 ml/min eGFR 87.13 BUN/Creatinine Ratio 42.0 H (10-20) Glucose 92 (70-99(Fasting)) mg/dl Calcium 5.5 L* (8.6-10.3) mg/dl Magnesium 1.2 L (1.7-2.4) mg/dl Total Bilirubin 0.4 (0.2-1.0) mg/dl AST 14 (13-39) U/L ALT 13 (7-52) U/L Alkaline Phosphatase 29 L (34-104) U/L Total Protein 4.4 L (6.0-8.3) gm/dl Albumin 2.7 L (3.4-5.0) gm/dl Globulin 1.7 L (2.5-4.0) gm/dl Albumin/Globulin Ratio 1.6 (0.9-2) Stl C. diff Tox B Gene Negative Cdiff Gene (Neg) Administered Medications Magnesium Sulfate/Dextrose (Magnesium Sulfate / D5w) 1 gm in 100 mls @ 100 mls/hr IV NOW STA Stop: 07/02/24 19:28 Last Admin: 07/02/24 18:46 Dose: 100 mls/hr Documented By: GABRIELA Sodium Chloride (Nss) 1,000 mls @ 125 mls/hr IV .Q8H AMPARO Stop: 07/03/24 18:44 Last Admin: 07/02/24 18:54 Dose: 125 mls/hr Documented By: GABRIELA Discontinued Medications Sodium Chloride (Nss) 1,000 mls @ 999 mls/hr IV .Q1H1M ONE Stop: 07/02/24 18:00 Last Infusion: 07/02/24 18:54 Dose: Infused Documented By: Admin: 07/02/24 17:41 Dose: 999 mls/hr Documented By: GABRIELA Calcium Gluconate () 1,000 mg in 60 mls @ 240 mls/hr IV NOW STA Stop: 07/02/24 18:42 Last Infusion: 07/02/24 18:54 Dose: Infused Documented By: Admin: 07/02/24 18:37 Dose: 240 mls/hr Documented By: GABRIELA Calcium Gluconate () 1,000 mg in 60 mls @ 240 mls/hr IV Q15M AMPARO Stop: 07/02/24 18:59 Last Admin: 07/02/24 18:54 Dose: 240 mls/hr Documented By: GABRIELA Ondansetron HCl (Ondansetron Inj 2 Mg/Ml 2 Ml Vial) 4 mg IV NOW STA Stop: 07/02/24 17:01 Last Admin: 07/02/24 17:42 Dose: 4 mg Documented By: GABREILA Discharge Plan Visit Data Chief Complaint: Vomiting Stated Complaint: VOMITING, DIARRHEA, DEHYDRATION ED Provider: Patrick Portillo Discharge Problem: Acute dehydration, History of immunotherapy, Nausea vomiting and diarrhea, Hypocalcemia, Hypokalemia, Hypomagnesemia Forms Stand Alone Forms: Count Includes [facility] Prescriptions Prescriptions: No Action ferrous sulfate 27 mg iron tablet 27 mg PO DAILY Glucosamine Chondroitin 550-30-1 mg Capsule 1 cap PO QPM Neuriva Original 100-100 mg Capsule 1 cap PO QPM Rx Instructions: DOSE UNKNOWN cholecalciferol (vitamin D3) [Vitamin D3] 50 mcg (2,000 unit) Capsule 50 mcg PO QAM Tums 300 mg (750 mg) Tablet,Chewable 300 mg PO TID PRN (Reason: Gi Upset) levothyroxine 88 mcg tablet 88 mcg PO DAILYBB Referrals Referrals: Maribell Read PA-C [Primary Care Provider] -
[2024-07-02] MEDS: SODIUM CHLORIDE 0.9% 1,000 ML IV ONE (17:41)
[2024-07-02] MEDS: ONDANSETRON INJ 2 MG/ML 2 ML VIAL IV STA (17:42)
[2024-07-02 17:50] LABS: Hematocrit (blood only) 29.8 % (37.0-47.0); Hemoglobin 9.9 g/dl (12.0-16.0); Mean Corpuscular Hemoglobin 31.4 pg (25.0-34.0); Mean Corpuscular Hgb Conc 33.2 g/dL (32.0-36.0); Mean Corpuscular Volume 94.6 fL (80.0-100.0); Mean Platelet Volume 9.1 fL (9.4-12.4); Platelet Count 141 K/uL (130-400); RDW Standard Deviation 45.2 fL (36.4-46.3); Red Blood Count 3.15 M/uL (4.20-5.40); White Blood Count 3.29 K/ul (4.8-10.8)
[2024-07-02 18:08] LABS: Basophils # (auto) 0.01 K/uL (0.00-0.20); Basophils % (auto) 0.3 %; Immature Granulocytes # (auto) 0.01 K/uL (0.01-0.20); Immature Granulocytes % (auto) 0.3 %; Lymphocytes # (auto) 0.27 K/uL (1.20-3.40); Lymphocytes % (auto) 8.2 %; Monocytes # (auto) 0.29 K/uL (0.11-0.59); Monocytes % (auto) 8.8 %; Neutrophils # (auto) 2.71 K/uL (1.40-6.50); Neutrophils % (auto) 82.4 %; Polychromasia 1+; Toxic Vacuolation 1+
[2024-07-02 18:23] LABS: Albumin Globulin Ratio 1.6 (0.9-2); Albumin Level 2.7 gm/dl (3.4-5.0); Bilirubin,Total 0.4 mg/dl (0.2-1.0); Calcium 5.5 mg/dl (8.6-10.3); Creatinine Clr Calc Pharmacy 49.9 ml/min; Globulin 1.7 gm/dl (2.5-4.0); Magnesium 1.2 mg/dl (1.7-2.4); Potassium 2.8 mmol/L (3.5-5.1); Total Protein 4.4 gm/dl (6.0-8.3)
[2024-07-02] MEDS: CALCIUM GLUCONATE 1,000 MG/60 ML BAG IV STA (18:37)
[2024-07-02] MEDS ORDERED: ONDANSETRON INJ 2 MG/ML 2 ML VIAL IV PRN (18:43)
[2024-07-02] MEDS: MAGNESIUM SULFATE / D5W 1 GM/100 ML BAG IV STA (18:46)
[2024-07-02 18:51] LABS: Adenovirus F 40/41 PCR Not Detected (NotDetected); Astrovirus PCR Not Detected (NotDetected); Campylobacter PCR Not Detected (NotDetected); Cryptosporidium PCR Not Detected (NotDetected); Cyclospora cayetanensis PCR Not Detected (NotDetected); Entamoeba histolytica PCR Not Detected (NotDetected); Enteroaggregative E.coli(EAEC) Not Detected (NotDetected); Enterotoxigenic E.coli (ETEC) Not Detected (NotDetected); Giardia lamblia PCR Not Detected (NotDetected); Plesiomonas shigelloides PCR Not Detected (NotDetected); Rotavirus A PCR Not Detected (NotDetected); Salmonella PCR Not Detected (NotDetected); Sapovirus PCR Not Detected (NotDetected); Shiga-like Toxin E.coli (STEC) Not Detected (NotDetected); Shigella/Enteroinvasive E.coli Not Detected (NotDetected); Vibrio cholerae PCR Not Detected (NotDetected); Vibrio species PCR Not Detected (NotDetected); Yersinia enterocolitica PCR Not Detected (NotDetected)
[2024-07-02] MEDS: SODIUM CHLORIDE 0.9% 1,000 ML IV SCH (18:54)
[2024-07-02] MEDS: CALCIUM GLUCONATE 1,000 MG/60 ML BAG IV SCH (18:54)
[2024-07-02 19:15] LABS: Enteropathogenic E.coli (EPEC) DETECTED (NotDetected); Norovirus GI/GII PCR DETECTED (NotDetected)
--- NOTE | 2024-07-02 19:18 | History & Physical Report ---
Date of Service July 02, 2024 Assessment & Plan (1) Norovirus: Plan: Assessment: 1. Acute nausea vomiting diarrhea. Multifactorial as discussed below. Symptomatic treatment as discussed below. 2. Acute norovirus infection. Symptomatic control was discussed. Antiemetics. NPO. Volume resuscitation. 3. Acute enteropathogenic E. coli diarrhea (EPEC). Infectious disease consulted alejandrina I spoke with him personally-Dr. Sexton. Even given the fact the patient is immunocompromised, since he is not septic, febrile, tachycardic excetra we are going to hold off on antibiotic therapy. If the patient should become febrile or becomes septic or have refractory diarrhea over the next 24 to 48 hours despite conservative management antibiotic therapy in the form of azithromycin or quinolone could be considered per guidelines. 4. Endometrial cancer with recurrence. Currently on Keytruda. 5. Severe electrolyte abnormalities including: A. Hypomagnesemia 1.2. 4 g of mag sulfate total given IV. B. Hypokalemia 2.8. For potassium chloride riders 10 mill equivalents each for a total of 40 mill equivalents potassium chloride IV given. C. Hypocalcemia 5.5. 3 g of calcium gluconate given. Repeat electrolytes ordered for 11 PM with orders to call results to on-call physician. I personally spoke with the ER nurse in this regard. 6. Hypovolemia dehydration due to acute diarrheal illness. Hydrate aggressively. Lactated Ringer's at 125 cc/h. She has already received 2 L of normal saline. 7. Mild leukopenia. Probably secondary to Keytruda. Monitor. 8. Mild anemia. Monitor probably secondary to suppression from Keytruda. Mon itor. GI prophylaxis with Protonix IV for now. Plan: As discussed above. Please refer to orders for further planning. History of Present Illness Chief Complaint: Nausea, vomiting, diarrhea. Primary Care Provider: Maribell Read This is a pleasant 83-year-old female who has recurrence of metastatic endometrial carcinoma. She is currently on Keytruda every 6 weeks. Her last infusion was , approximately 72 hours ago. Yesterday she began to have nausea vomiting diarrhea to many episodes count she continued to have the above symptoms ongoing today and she made contact with her oncologist who referred her to the ER for further evaluation and treatment. Of note this is her fifth time she has received IV Keytruda. The other previous for time she did not have any of the above symptoms including nausea vomiting diarrhea and tolerated the infusion without complication. Upon presentation emergency department vital signs are stable. Laboratory studies gross laboratory abnormalities including leukopenia at 3.29, anemia with a hemoglobin of 9.9. Magnesium 1.2, calcium 5.5, potassium 2.8. CO2 suppressed at 16. Stool bio fire was negative for C. difficile and is otherwise pending at the time of this dictation. Patient had a CT chest abdomen pelvis all of which were nonacute. Will admit the patient to the telemetry unit given her electrolyte abnormalities do aggressive fluid and electrolyte replacement frequent labs. Please see assessment and plan below. Allergies Allergy/AdvReac Type Severity Reaction Status Date / Time Penicillins Allergy Unknown Swelling/Hi Verified 03/28/24 10:41 ves acetaminophen [From Tylenol] Allergy Hives Verified 03/28/24 10:41 amoxicillin Allergy Hives Verified 03/28/24 10:41 Home Medications Medication Instructions Recorded Confirmed Type glucosamine sulf dipot 1 cap PO QPM 02/17/20 07/02/24 History chlr,msm,chond 550 mg-C 30 mg-rick 1 mg capsule (Glucosamine Chondroitin) coffee extract 100 mg-phosphatidyl 1 cap PO QPM 10/25/22 07/02/24 History serine 100 mg capsule (Neuriva Original) calcium carbonate (Tums) 300 mg PO TID PRN Gi Upset 11/30/22 07/02/24 History cholecalciferol (vitamin D3) 50 50 mcg PO QAM 04/30/23 07/02/24 History mcg (2,000 unit) capsule (Vitamin D3) ferrous sulfate 27 mg iron tablet 27 mg PO DAILY 03/28/24 07/02/24 History levothyroxine 88 mcg tablet 88 mcg PO DAILYBB 07/02/24 07/02/24 History Past Med/Surg History Problem List (Updated 07/02/24 @ 19:26 by Fabian Smith, PhD, DO) Norovirus Hypomagnesemia (Acute) Hypokalemia (Acute) Hypocalcemia (Acute) Nausea vomiting and diarrhea (Acute) History of immunotherapy (Acute) Acute dehydration (Acute) Ureteral obstruction, left Encounter for insertion of venous access port Encounter for pre-operative examination Genetic carrier status Weakness (Acute) Elevated troponin (Acute) Acute UTI (Acute) Hypothyroidism Acute kidney injury Metastatic disease (Chronic) Clostridium difficile colitis Hyponatremia Elevated troponin Leukocytosis Urinary tract infection Endometrial mass Medical History 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 + mets. hx surgery. History of squamous cell carcinoma History of basal cell carcinoma Anemia Stable Hypothyroidism (acquired) Breast cancer (03/28/15) Right breast, invasive ductal carcinoma Lumpectomy/SLN- 2014 Surgical History Port-A-Cath in place (12/03/22) Insertion Access Port with Fluoroscopy(Left) - Hollis Alcantara MD, FACS Screening for colorectal cancer Patient does cologuard History of surgery nephrostomy tube in place Slow to wake up after anesthesia History of lymph node biopsy History of total abdominal hysterectomy and bilateral salpingo-oophorectomy History of removal of Port-a-Cath History of vascular access device History of breast biopsy History of squamous cell carcinoma excision History of D&C History of basal cell carcinoma (BCC) excision History of tubal ligation History of carpal tunnel release BL History of partial thyroidectomy History of tonsillectomy H/O lumpectomy Rt - malignant (2016) Rt - benign (2000) History of cataract surgery BL History of hysteroscopy Family History Mother Breast cancer Father Melanoma Cancer Heart disease Other No family history of adverse response to anesthesia Denies family history of Ovarian cancer Colorectal cancer Social History Smoking Status: Never smoker Tobacco Type: Cigarettes Second Hand Exposure: Yes (hx); Do You Dip or Chew Tobacco: No; Hx Alcohol Use: No Hx Substance Use: No Preferred Language: Icelandic Communication Ability: Effective 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 Beliefs That Will Affect Care: None marital status: Current Living Situation: Spouse and Family Current Living Situation Comment: lives w/ & 2 stepsons current occupational status: retired How many Children do You have: 1 How many Children do You have Comment: 1 biological, 4 Step children Feels Safe at Home: Yes Diet: regular during the past year weight has: decreased > 10 lbs Assistive Devices: Glasses Review of Systems Review of Systems: A 10 point review of system was obtained and unless otherwise stated here or in history of present illness are negative and noncontributory to chief complaint. Physical Exam Physical Exam: In General: In general very pleasant 83-year-old female is alert and oriented x 3 at the time of my exam. She has no other complaints except for refractory GI symptomatology of nausea vomiting diarrhea. HEENT: Normocephalic atraumatic pupils are equal round and reactive to light bilaterally. No scleral icterus no conjunctival injection external auditory canals are patent septum is in the midline nose is without discharge oral mucosa is pink and moist without lesion. NECK: Supple no rigidity no lymphadenopathy no thyromegaly no carotid bruits no JVD no masses. HEART: Regular rate and rhythm I do not appreciate any ectopy or rub. No murmur. [id number] noted in the left chest wall which is currently accessed. LUNGS: Clear to auscultation bilaterally and anteriorly with no evidence of adventitious sounds/wheezes rales or rhonchi. ABDOMEN: Soft nontender, no rebound, no peritoneal signs, hyperactive bowel sounds, no appreciable organomegaly. EXTREMITIES: Intact, no peripheral cyanosis, clubbing or edema. Strength is 5 out of 5 in extremities x4. NEUROLOGICAL: Cranial nerves II through XII are grossly intact with no focal deficit elicited upon examination. No tremor. Results & Data Results & Data Vital Signs (Past 12 Hours) Vital Signs Temp Pulse Pulse Resp BP BP Pulse Ox 07/02/24 17:45 85 20 100/54 L 96 07/02/24 17:14 88 07/02/24 17:13 95 07/02/24 16:43 36.8 C 98 H 18 113/68 96 O2 Del Method 07/02/24 17:45 Room Air 07/02/24 17:14 07/02/24 17:13 Room Air 07/02/24 16:43 Room Air Code Status & VTE Plan Code Status Full code. I personally discussed with patient at the bedside this evening VTE Prophylaxis Plan VTE Prophylaxis will be ordered: Yes PG Care Time/CCT Total # of Minutes Spent Total Time Spent with Patient: Total time spent is greater than 50% in coordination of care (as documented) at patient's floor/unit and/or counseling patient: Coding Level of Care Code 45693 INT INP/OBS CARE 3/75MIN Diagnoses Norovirus A08.11
[2024-07-02] MEDS: POTASSIUM CHLORIDE / WTR 10 MEQ/100 ML PLCT IV SCH (19:48)
[2024-07-02] MEDS: MAGNESIUM SULFATE / D5W 1 GM/100 ML BAG IV SCH ×2 (19:50→19:58)
[2024-07-02] MEDS: PANTOprazole 40 MG/10 ML SYR IV SCH (21:30)
[2024-07-02 23:25] LABS: Albumin Globulin Ratio 1.6 (0.9-2); Albumin Level 3.4 gm/dl (3.4-5.0); Bilirubin,Total 0.5 mg/dl (0.2-1.0); Calcium 7.9 mg/dl (8.6-10.3); Globulin 2.1 gm/dl (2.5-4.0); Magnesium 2.8 mg/dl (1.7-2.4); Potassium 4.3 mmol/L (3.5-5.1); Total Protein 5.5 gm/dl (6.0-8.3)
[2024-07-03 00:50] LABS: Albumin Globulin Ratio 1.7 (0.9-2); Albumin Level 3.4 gm/dl (3.4-5.0); BUN Creatinine Ratio 32.3 (10-20); Bilirubin,Total 0.4 mg/dl (0.2-1.0); Calcium 7.8 mg/dl (8.6-10.3); Creatinine Clr Calc Pharmacy 37.9 ml/min; Magnesium 2.9 mg/dl (1.7-2.4); Potassium 4.6 mmol/L (3.5-5.1); Total Protein 5.4 gm/dl (6.0-8.3)
[2024-07-03] MEDS: MELATONIN 3 MG TAB PO PRN (01:00)
[2024-07-03 05:58] LABS: Hematocrit (blood only) 30.3 % (37.0-47.0); Mean Corpuscular Hemoglobin 31.6 pg (25.0-34.0); Mean Corpuscular Volume 95.9 fL (80.0-100.0); Mean Platelet Volume 8.9 fL (9.4-12.4); Platelet Count 179 K/uL (130-400); RDW Coefficient of Variation 13.2 % (11.5-14.5); Red Blood Count 3.16 M/uL (4.20-5.40); White Blood Count 2.73 K/ul (4.8-10.8)
[2024-07-03 06:30] LABS: Albumin Globulin Ratio 1.6 (0.9-2); Albumin Level 3.1 gm/dl (3.4-5.0); BUN Creatinine Ratio 30.3 (10-20); Bilirubin,Total 0.3 mg/dl (0.2-1.0); Calcium 7.4 mg/dl (8.6-10.3); Creatinine Clr Calc Pharmacy 39.6 ml/min; Magnesium 2.5 mg/dl (1.7-2.4); Potassium 4.2 mmol/L (3.5-5.1); Thyroid Stimulating Hormone 2.045 uIu/ml (0.300-4.500); Total Protein 5.1 gm/dl (6.0-8.3)
[2024-07-03 07:30] LABS: Basophils # (auto) 0.01 K/uL (0.00-0.20); Basophils % (auto) 0.4 %; Eosinophils # (auto) 0.06 K/uL (0.00-0.50); Eosinophils % (auto) 2.2 %; Lymphocytes # (auto) 0.58 K/uL (1.20-3.40); Lymphocytes % (auto) 21.2 %; Monocytes # (auto) 0.42 K/uL (0.11-0.59); Monocytes % (auto) 15.4 %; Neutrophils # (auto) 1.66 K/uL (1.40-6.50); Neutrophils % (auto) 60.8 %
[2024-07-03] MEDS: LEVOTHYROXINE SODIUM 88 MCG TABLET PO SCH (07:41)
--- NOTE | 2024-07-03 08:29 | Electrocardiogram Report ---
Test Reason : Blood Pressure : */* mmHG Vent. Rate : 84 BPM Atrial Rate : 84 BPM P-R Int : 172 ms QRS Dur : 82 ms QT Int : 402 ms P-R-T Axes : 23 27 63 degrees QTcB Int : 475 ms Normal sinus rhythm Normal ECG When compared with ECG of 25-Oct-2022 18:29, Premature supraventricular complexes are no longer Present Nonspecific T wave abnormality no longer evident in Inferior leads T wave inversion no longer evident in Anterolateral leads Confirmed by Demond Faulkner ([id number]) on 07/03/2024 8:29:35 AM Referred By: Gage Pool Confirmed By: Demond Faulkner
[2024-07-03 08:42] VITALS: RESP 18; O2SAT 97
[2024-07-03 11:39] VITALS: BP 119/66; PULSE 80; TEMP 99.3
--- NOTE | 2024-07-03 13:26 | Discharge Summary ---
Date of Service July 03, 2024 Admission HPI Per Admitting Provider This is a pleasant 83-year-old female who has recurrence of metastatic endometrial carcinoma. She is currently on Keytruda every 6 weeks. Her last infusion was , approximately 72 hours ago. Yesterday she began to have nausea vomiting diarrhea to many episodes count she continued to have the above symptoms ongoing today and she made contact with her oncologist who referred her to the ER for further evaluation and treatment. Of note this is her fifth time she has received IV Keytruda. The other previous for time she did not have any of the above symptoms including nausea vomiting diarrhea and tolerated the infusion without complication. Upon presentation emergency department vital signs are stable. Laboratory studies gross laboratory abnormalities including leukopenia at 3.29, anemia with a hemoglobin of 9.9. Magnesium 1.2, calcium 5.5, potassium 2.8. CO2 suppressed at 16. Stool bio fire was negative for C. difficile and is otherwise pending at the time of this dictation. Patient had a CT chest abdomen pelvis all of which were nonacute. Will admit the patient to the telemetry unit given her electrolyte abnormalities do aggressive fluid and electrolyte replacement frequent labs. Please see assessment and plan below. Specialty Data Hospitalist Discharge Diagnosis: 1. Norovirus 2. EPEC Discharge PE: Vital Signs Temp Pulse Pulse Resp BP BP Pulse Ox 07/03/24 11:38 37.4 C 80 18 119/66 97 07/03/24 08:00 62 07/03/24 07:41 36.8 C 77 18 109/59 L 97 07/03/24 02:48 36.6 C 87 17 128/64 96 07/02/24 23:33 36.6 C 77 18 130/66 97 07/02/24 22:00 68 07/02/24 21:22 36.5 C 72 16 132/67 97 07/02/24 19:36 72 20 112/60 95 07/02/24 17:45 85 20 100/54 L 96 07/02/24 17:14 88 07/02/24 17:13 95 07/02/24 16:43 36.8 C 98 H 18 113/68 96 O2 Del Method 07/03/24 11:38 Room Air 07/03/24 08:00 07/03/24 07:41 Room Air 07/03/24 02:48 Room Air 07/02/24 23:33 Room Air 07/02/24 22:00 07/02/24 21:22 Room Air 07/02/24 19:36 07/02/24 17:45 Room Air 07/02/24 17:14 07/02/24 17:13 Room Air 07/02/24 16:43 Room Air Intake and Output 07/02/24 07/03/24 07/03/24 22:59 06:59 14:59 Intake Total 1569.167 / 2740.834 1171.667 / 2740.834 1200 / 1200 Output Total 300 / 300 Balance 1569.167 / 2440.834 871.667 / 2440.834 1200 / 1200 Intake: IV 1569.167 / 2740.834 1171.667 / 2740.834 1200 / 1200 Calcium Gluconate 1,000 mg In 180 / 180 60 ml @ 240 mls/hr IV Q15M [facility] Rx#:[id number] Magnesium Sulfate / D5w 1 gm In 189.167 / 279.167 90 / 279.167 100 / 100 100 ml @ 50 mls/hr IV Q2H [facility] Rx#:[id number] Potassium Chloride / Wtr 10 meq 200 / 281.667 81.667 / 281.667 100 / 100 In 100 ml @ 100 mls/hr IV Q1H [facility] Rx#:[id number] Sodium Chloride 0.9% 1,000 ml @ 1000 / 2000 1000 / 2000 1000 / 1000 125 mls/hr IV .Q8H [facility] Rx#: [id number] Output: Urine 300 / 300 Other: Weight 58.3 kg 58.4 kg 58.4 kg Weight Measurement Method Built in [facility] Built in [facility] Patient Weight 07/04/24 06:59 Weight 58.4 kg GENERAL: 83 yo well-nourished elderly WF. Awake, alert and oriented. No distress. LUNGS: Nonlabored. Clear to auscultation bilaterally. CARDIOVASCULAR: Regular rate and rhythm. ABDOMEN: Soft, non-tender and non-distended. BS normoactive x 4 quad. EXTREMITIES: No edema. Non-tender. Peripheral pulses +2/4. SKIN: Warm, dry, intact. No rashes or lesions. Discharge Data Consultations 07/02/24 18:32 ED Decision to Admit Stat 07/02/24 20:12 Consult Infectious Diseases Routine Hospital Course (1) Norovirus: 1. Acute nausea vomiting diarrhea. Multifactorial as discussed below. Symptomatic treatment as discussed below. 2. Acute norovirus infection. Symptomatic control was discussed. Antiemetics. NPO. Volume resuscitation with NSS @ 125 ml/hr provided. Pt w/o n/v today, still with diarrhea (loose stools, not watery as before), no BRB or melena. Diet advanced to CLD, tolerated well without recurrence of symptoms. 3. Acute enteropathogenic E. coli diarrhea (EPEC). Infectious disease consulted alejandrina I spoke with him personally-Dr. Sexton. Even given the fact the patient is immunocompromised, since he is not septic, febrile, tachycardic excetra we are going to hold off on antibiotic therapy. If the patient should become febrile or becomes septic or have refractory diarrhea over the next 24 to 48 hours despite conservative management antibiotic therapy in the form of azithromycin or quinolone could be considered per guidelines. 4. Endometrial cancer with recurrence. Currently on Keytruda. F/U with oncology. 5. Severe electrolyte abnormalities including: A. Hypomagnesemia 1.2. 4 g of mag sulfate total given IV - repeat mag today 2.5 B. Hypokalemia 2.8. For potassium chloride riders 10 mill equivalents each for a total of 40 mill equivalents potassium chloride IV given - repeat K+ today 4.2 C. Hypocalcemia 5.5. 3 g of calcium gluconate given - repeat Ca+ 7.4 6. Hypovolemia dehydration due to acute diarrheal illness. Hydrated aggressively w/ NSS as noted above. She has already received 2 L of normal saline. 7. Mild leukopenia. Probably secondary to Keytruda. Slightly worse today from 3.29 to 2.73 but in the setting of acute illness and hydration. F/U with oncology. 8. Mild anemia. Monitor probably secondary to suppression from Keytruda. Monitor. GI prophylaxis with Protonix IV for now. Patient is overall greatly improved from time of admission, she is tolerating CLD and would like to be discharged home. Slowly advanced diet back to regular, recommend small bites/meals and BRAT diet/low fiber. Plan for f/u with PCP within 1 week or sooner if needed. Above plan of care has been d/w Dr. Liao who is in agreement. Plan Total time for discharge: 36 minutes Coding Level of Care Code 19926 INP/OBS DISCH >30 MIN Diagnoses Norovirus A08.11
== END 2024-07-03 14:12 | disposition home or self-care (01) ==
LOC: ED 16:39 → INTOOBSV 18:43 → 2S 18:43 → SUATTDRO 18:43 → 2S 20:51